=== PATIENT | male | born 1970 | race Caucasian/White ===

== ENCOUNTER 2019-02-23 17:25 | Emergency (ER) | payer SELFPAY ==
[2019-02-23] MEDS: ONDANSETRON (ODT) 4 MG TAB ODT (18:12)
[2019-02-23 18:19] LABS: ADD MAN DIFF? NO
[2019-02-23 18:22] LABS: ABNORMAL IP MESSAGE 1; BASOPHILS % 0.3 % (0.0-2.0); HEMATOCRIT 37.3 % (42.0-52.0); HEMOGLOBIN 12.7 g/dl (14.0-18.0); LYMPHOCYTES # 0.6 10^3/ul (0.8-2.9); LYMPHOCYTES % 6.5 % (15.0-51.0); MEAN CORPUSCULAR HEMOGLOBIN 30.1 pg (29.0-33.0); MEAN CORPUSCULAR VOLUME 88.4 fl (82.0-101.0); MEAN PLATELET VOLUME 12.6 fl (7.4-10.4); MONOCYTE # 0.4 10^3/ul (0.3-0.9); MONOCYTES % 4.7 % (0.0-11.0); NEUTROPHIL # 7.6 10^3/ul (1.6-7.5); NEUTROPHILS % 87.6 % (39.0-77.0); PLATELET COUNT 104 10^3/UL (140-415); POSITIVE DIFF @See below; RED BLOOD COUNT 4.22 10^6/ul (4.70-6.10); RED CELL DISTRIBUTION WIDTH 12.3 % (11.5-14.5)
[2019-02-23 18:22] LABS: WHITE BLOOD COUNT 8.6 10^3/ul (4.8-10.8)
[2019-02-23 18:45] LABS: ADD UMIC YES; UR ASCORBIC ACID 40 mg/dL (NEGATIVE); UR BILIRUBIN (Dip) 1+ mg/dL (NEGATIVE); UR BLOOD (Dip) NEGATIVE (NEGATIVE); UR CLARITY SLIGHTLY CLOUDY (CLEAR); UR COLOR AMBER (YELLOW); UR GLUCOSE (Dip) 1+ mg/dL (NEGATIVE); UR KETONES (Dip) 2+ mg/dL (NEGATIVE); UR LEUKOCYTE ESTERASE (Dip) NEGATIVE Leu/ul (NEGATIVE); UR MUCUS MANY /HPF (NONE SEEN); UR NITRITE (Dip) NEGATIVE (NEGATIVE); UR RBC 3 /HPF (0-5); UR SPECIFIC GRAVITY (Dip) 1.044 (1.003-1.030); UR TOTAL PROTEIN (Dip) 2+ mg/dl (NEGATIVE); UR UROBILINOGEN (Dip) 2+ mg/dL (NEGATIVE); UR WBC 1 /HPF (0-5)
[2019-02-23 18:48] LABS: ANION GAP 10 (5-13); BLOOD UREA NITROGEN 13 mg/dl (7-20); CALCIUM 8.3 mg/dl (8.4-10.2); CARBON DIOXIDE 24 mmol/L (21-31); CHLORIDE 99 mmol/L (97-110); CREATININE 0.64 mg/dl (0.61-1.24); Estimated GFR > 60 mL/min (>60); GLUCOSE 146 mg/dl (70-220); POTASSIUM 3.7 mmol/L (3.5-5.1); SODIUM 133 mmol/L (135-144)
[2019-02-23] MEDS: SOD CHLORIDE 0.9% 1,000 ML IV (19:20)
[2019-02-23] MEDS: HYDROCODONE/APAP (5/325) TAB PO (19:20)
[2019-02-23] MEDS: KETOROLAC 15 MG INJ IV (19:20)
[2019-02-23 19:42] LABS: BAND NEUTROPHILS % (M) 1 % (0-4); GIANT THROMBO% (M) 3 % (0-0); LYMPHOCYTES #M 0.4 10^3/ul (0.8-2.9); LYMPHOCYTES % (M) 5 % (15-51); MONOCYTE #M 0.3 10^3/ul (0.3-0.9); MONOCYTES % (M) 4 % (0-11); SEG NEUT #M 7.7 10^3/ul (1.6-7.5); SEGMENTED NEUTROPHILS (M) % 90 % (39-77); SMUDGE%M 9 % (0-0)
== END 2019-02-23 21:02 | disposition home or self-care (01) ==
LOC: FTE 21:02
DX: E86.0 Dehydration (principal); B34.9 Viral infection, unspecified
CPT/HCPCS: 71046; 80048; 81001; 85025; 96361; 96374; 99284-25

== ENCOUNTER 2019-02-27 14:10 | Emergency (ER) | payer MEDICAID ==
[2019-02-27] MEDS: ACETAMINOPHEN 500 MG TAB PO (15:53)
[2019-02-27] MEDS: SOD CHLORIDE 0.9% 1,000 ML IV (15:53)
[2019-02-27] MEDS: KETOROLAC 30 MG INJ IV (15:54)
[2019-02-27 15:57] LABS: ADD MAN DIFF? NO
[2019-02-27 15:59] LABS: WHITE BLOOD COUNT 16.1 10^3/ul (4.8-10.8)
[2019-02-27 15:59] LABS: BASOPHILS % 0.2 % (0.0-2.0); HEMATOCRIT 37.1 % (42.0-52.0); HEMOGLOBIN 12.4 g/dl (14.0-18.0); LYMPHOCYTES # 1.6 10^3/ul (0.8-2.9); LYMPHOCYTES % 10.2 % (15.0-51.0); MEAN CORPUSCULAR HEMOGLOBIN 29.7 pg (29.0-33.0); MEAN CORPUSCULAR HGB CONC 33.4 g/dl (32.0-37.0); MEAN PLATELET VOLUME 11.3 fl (7.4-10.4); MONOCYTE # 1.4 10^3/ul (0.3-0.9); MONOCYTES % 8.6 % (0.0-11.0); NEUTROPHIL # 12.5 10^3/ul (1.6-7.5); NEUTROPHILS % 77.5 % (39.0-77.0); PLATELET COUNT 272 10^3/UL (140-415); RED BLOOD COUNT 4.17 10^6/ul (4.70-6.10); RED CELL DISTRIBUTION WIDTH 12.7 % (11.5-14.5)
[2019-02-27 16:12] LABS: ADD UMIC NO; UR ASCORBIC ACID NEGATIVE (NEGATIVE); UR BILIRUBIN (Dip) NEGATIVE (NEGATIVE); UR BLOOD (Dip) NEGATIVE (NEGATIVE); UR CLARITY CLEAR (CLEAR); UR COLOR YELLOW (YELLOW); UR GLUCOSE (Dip) NEGATIVE (NEGATIVE); UR KETONES (Dip) NEGATIVE (NEGATIVE); UR LEUKOCYTE ESTERASE (Dip) NEGATIVE Leu/ul (NEGATIVE); UR NITRITE (Dip) NEGATIVE (NEGATIVE); UR SPECIFIC GRAVITY (Dip) 1.024 (1.003-1.030); UR TOTAL PROTEIN (Dip) NEGATIVE (NEGATIVE); UR UROBILINOGEN (Dip) 1+ mg/dL (NEGATIVE)
[2019-02-27 16:18] LABS: PROTIME 13.3 Sec (11.9-14.9)
[2019-02-27 16:19] LABS: PARTIAL THROMBOPLASTIN TIME 31.4 Sec (23.0-35.0)
[2019-02-27 16:22] LABS: ANION GAP 10 (5-13); BLOOD UREA NITROGEN 11 mg/dl (7-20); CALCIUM 8.6 mg/dl (8.4-10.2); CARBON DIOXIDE 26 mmol/L (21-31); CHLORIDE 98 mmol/L (97-110); Estimated GFR > 60 mL/min (>60); GLUCOSE 140 mg/dl (70-220); POTASSIUM 4.1 mmol/L (3.5-5.1); SODIUM 134 mmol/L (135-144)
[2019-02-27 17:04] LABS: ERYTHROCYTE SEDIMENTATION RATE 53 mm/Hr (0-15)
[2019-02-27] MEDS: morphine 4 MG/ML VIAL IV (17:11)
[2019-02-27] MEDS: PROCHLORPERAZINE 10 MG INJ IV (17:17)
== END 2019-02-27 18:08 | disposition home or self-care (01) ==
LOC: FTE 14:10
DX: R51 Headache (principal); R50.9 Fever, unspecified
CPT/HCPCS: 36415; 70450; 70486; 71046; 80048; 81003; 85025; 85610; 85651; 85730; 87400; 96361; 96374; 96375; 99285-25

== ENCOUNTER 2019-03-02 19:02 | Inpatient (IN) | payer MEDICAID ==
[2019-03-02 19:47] LABS: ABNORMAL IP MESSAGE 1; HEMATOCRIT 33.1 % (42.0-52.0); HEMOGLOBIN 11.1 g/dl (14.0-18.0); MEAN CORPUSCULAR HEMOGLOBIN 29.4 pg (29.0-33.0); MEAN CORPUSCULAR HGB CONC 33.5 g/dl (32.0-37.0); MEAN CORPUSCULAR VOLUME 87.8 fl (82.0-101.0); MEAN PLATELET VOLUME 11.7 fl (7.4-10.4); PLATELET COUNT 230 10^3/UL (140-415); POSITIVE DIFF @See below; RED BLOOD COUNT 3.77 10^6/ul (4.70-6.10); RED CELL DISTRIBUTION WIDTH 12.6 % (11.5-14.5)
[2019-03-02 19:47] LABS: WHITE BLOOD COUNT 28.5 10^3/ul (4.8-10.8)
[2019-03-02 19:53] LABS: ADD MAN DIFF? YES; PATH REVIEW? YES
[2019-03-02 20:01] LABS: AMMONIA 12 umol/l (9-30)
[2019-03-02] MEDS: VANCOMYCIN 1 GM (PMX) 250 ML IVPB (20:01)
[2019-03-02] MEDS: CEFEPIME 2GM/50 ML (PMX) 50 ML IVPB (20:01)
[2019-03-02 20:02] LABS: ALANINE AMINOTRANSFERASE 137 IU/L (13-69); ALBUMIN 3.4 g/dl (3.3-4.9); ALBUMIN/GLOBULIN RATIO 0.91; ALKALINE PHOSPHATASE 230 IU/L (42-121); ANION GAP 10 (5-13); ASPARTATE AMINO TRANSFERASE 125 IU/L (15-46); BILIRUBIN,INDIRECT 1.2 mg/dl (0-1.1); BILIRUBIN,TOTAL 1.6 mg/dl (0.2-1.3); BLOOD UREA NITROGEN 13 mg/dl (7-20); CALCIUM 8.4 mg/dl (8.4-10.2); CARBON DIOXIDE 24 mmol/L (21-31); CHLORIDE 97 mmol/L (97-110); CREATININE 0.45 mg/dl (0.61-1.24); Estimated GFR > 60 mL/min (>60); GLUCOSE 183 mg/dl (70-220); POTASSIUM 3.2 mmol/L (3.5-5.1); SODIUM 131 mmol/L (135-144); TOTAL PROTEIN 7.1 g/dl (6.1-8.1)
[2019-03-02 20:04] LABS: INR 1.07; PT RATIO 1.1
[2019-03-02 20:05] LABS: PARTIAL THROMBOPLASTIN TIME 28.1 Sec (23.0-35.0)
[2019-03-02] MEDS: SOD CHLORIDE 0.9% 1,000 ML IV ×3 (20:06→22:54)
[2019-03-02 20:14] LABS: TROPONIN-I < 0.012 ng/ml (0.000-0.120)
[2019-03-02] MEDS: LORAZEPAM 2 MG INJ IV ×3 (20:42→21:48)
[2019-03-02 20:53] LABS: PROCALCITONIN 0.71 ng/mL (0.00-0.10)
[2019-03-02 22:01] LABS: BAND NEUTROPHILS #M 1.9 10^3/ul (0.0-0.6); BAND NEUTROPHILS % (M) 7 % (0-4); LYMPHOCYTES #M 0.8 10^3/ul (0.8-2.9); LYMPHOCYTES % (M) 3 % (15-51); MONOCYTE #M 0.2 10^3/ul (0.3-0.9); MONOCYTES % (M) 1 % (0-11); SEG NEUT #M 25.9 10^3/ul (1.6-7.5); SEGMENTED NEUTROPHILS (M) % 89 % (39-77); SMUDGE%M 3 % (0-0)
[2019-03-02] MEDS ORDERED: LORAZEPAM 2 MG INJ IV (23:00)
[2019-03-02] MEDS ORDERED: ONDANSETRON 4 MG INJ IV ×2 (23:00)
[2019-03-02] MEDS ORDERED: ACETAMINOPHEN 325 MG TAB PO (23:00)
[2019-03-02 23:15] LABS: C-REACTIVE PROTEIN 22.8 mg/dl (0.0-0.9)
[2019-03-02] MEDS: PROPOFOL 200 MG INJ IV (23:18)
[2019-03-02] MEDS ORDERED: AMPICILLIN IVPB (23:30)
[2019-03-02] MEDS ORDERED: VANCOMYCIN IV PER PHARMACY XX (23:30)
[2019-03-02] MEDS ORDERED: SOD CHLORIDE 0.9% IVPB (23:30)
[2019-03-02 23:56] LABS: HAAIG REFLEX REFLEX FILED
[2019-03-03 00:16] LABS: MAGNESIUM 2.4 mg/dl (1.7-2.5)
[2019-03-03 00:47] LABS: HEPATITIS B SURFACE ANTIGEN NEGATIVE (NEGATIVE)
[2019-03-03 00:53] LABS: ETHANOL < 10.0 mg/dl (0-0)
[2019-03-03] MEDS: AMPICILLIN 1 GM/NS (PMX) 50 ML IVPB ×7 (00:54→23:54)
[2019-03-03 01:04] LABS: HIV 1&2 ANTIBODY NEGATIVE (NEGATIVE)
[2019-03-03 01:05] LABS: HEPATITIS B CORE ANTIBODY NEGATIVE (NEGATIVE); HEPATITIS C VIRAL ANTIBODY NEGATIVE (NEGATIVE)
[2019-03-03 01:11] LABS: ERYTHROCYTE SEDIMENTATION RATE 88 mm/Hr (0-15)
[2019-03-03 01:17] LABS: HEPATITIS B SURFACE ANTIBODY NEGATIVE (NEGATIVE)
[2019-03-03 01:34] LABS: GLUCOSE,CSF < 20 mg/dl (50-80)
[2019-03-03 01:51] LABS: CSF PMN% 93.5 %; CSF RBC 7000 /uL (0-0)
[2019-03-03 02:00] LABS: CSF PMN% 93.2 %; CSF RBC 11000 /uL (0-0)
[2019-03-03 02:19] LABS: TOTAL PROTEIN,CSF 1050 mg/dl (12-60)
[2019-03-03] MEDS: HALOPERIDOL 5 MG INJ IM (02:29)
[2019-03-03 02:56] LABS: AADO2 Arterial 42.6 mmHg (7.0-24.0); Arterial Base Excess -0.6 mmol/L (-3.0-3); Arterial Blood Gas Oxygen Sat 92.8 mmHG (95.0-98.0); Arterial COHb 0.3 % (0.0-3.0); Arterial Fraction of Oxyhgb 92.3 % (93.0-99.0); Arterial HCO3 22.6 mmol/L (22.0-26.0); Arterial MetHb 0.2 % (0.0-1.5); Arterial pCO2 32.6 mmhg (35-45); MODE ROOM AIR; Site LB
[2019-03-03] MEDS: ACETAMINOPHEN 650 MG SUPP PR (02:58)
[2019-03-03] MEDS: IPRATROPIUM (NEB) 0.5 MG/2.5 ML AMP NEB ×2 (03:18→08:34)
[2019-03-03] MEDS: ALBUTEROL 0.083% (NEB) 2.5 MG/3 ML AMP NEB ×3 (03:19→21:42)
[2019-03-03 03:23] LABS: CSF COLOR MILKY
[2019-03-03 03:23] LABS: CSF CLARITY TURBID; CSF MN% 6.8 %; CSF#TUBES REC'D 4
[2019-03-03 03:24] LABS: CSF#TUBE COUNT TUBE#1
[2019-03-03 03:26] LABS: CSF CLARITY TURBID; CSF COLOR MILKY; CSF MN% 6.5 %; CSF#TUBE COUNT TUBE#4; CSF#TUBES REC'D 4
[2019-03-03 03:39] LABS: CSF WBC 339751 /cmm (0-10)
[2019-03-03 03:40] LABS: CSF WBC 428757 /cmm (0-10)
[2019-03-03] MEDS: VANCOMYCIN 1 GM 250 ML IVPB ×3 (04:30→20:31)
[2019-03-03] MEDS ORDERED: DEXAMETHASONE 10 MG/ML 1 ML INJ IV (05:00)
[2019-03-03] MEDS: DEXAMETHASONE 10 MG/ML 1 ML INJ IV ×4 (05:04→22:20)
[2019-03-03] MEDS: PANTOPRAZOLE 40 MG INJ IV (05:04)
[2019-03-03] MEDS: ACETAMINOPHEN 1000MG/100ML IV 100 ML IVPB (05:13)
[2019-03-03 05:57] LABS: WHITE BLOOD COUNT 24.7 10^3/ul (4.8-10.8)
[2019-03-03 05:57] LABS: ABNORMAL IP MESSAGE 1; HEMATOCRIT 30.7 % (42.0-52.0); HEMOGLOBIN 10.6 g/dl (14.0-18.0); MEAN CORPUSCULAR HEMOGLOBIN 29.9 pg (29.0-33.0); MEAN CORPUSCULAR HGB CONC 34.5 g/dl (32.0-37.0); MEAN CORPUSCULAR VOLUME 86.5 fl (82.0-101.0); MEAN PLATELET VOLUME 11.9 fl (7.4-10.4); PLATELET COUNT 196 10^3/UL (140-415); POSITIVE DIFF @See below; RED BLOOD COUNT 3.55 10^6/ul (4.70-6.10); RED CELL DISTRIBUTION WIDTH 12.5 % (11.5-14.5)
[2019-03-03 06:08] LABS: ADD MAN DIFF? YES
[2019-03-03 06:24] LABS: ALANINE AMINOTRANSFERASE 105 IU/L (13-69); ALKALINE PHOSPHATASE 168 IU/L (42-121); ANION GAP 10 (5-13); ASPARTATE AMINO TRANSFERASE 48 IU/L (15-46); BILIRUBIN,TOTAL 1.1 mg/dl (0.2-1.3); BLOOD UREA NITROGEN 13 mg/dl (7-20); CALCIUM 8.1 mg/dl (8.4-10.2); CARBON DIOXIDE 23 mmol/L (21-31); CHLORIDE 102 mmol/L (97-110); CHOL/HDL RATIO 6.3 RATIO; CHOLESTEROL 121 mg/dl (100-200); CREATININE 0.57 mg/dl (0.61-1.24); Estimated GFR > 60 mL/min (>60); GLUCOSE 155 mg/dl (70-220); HDL CHOLESTEROL 19 mg/dl (27-67); LDL CHOLESTEROL,CALCULATED 72 mg/dl; MAGNESIUM 2.3 mg/dl (1.7-2.5); SODIUM 135 mmol/L (135-144); TRIGLYCERIDES 150 mg/dl (0-149)
[2019-03-03 06:49] LABS: THYROID STIMULATING HORMONE 0.488 MIU/L (0.465-4.680)
[2019-03-03 07:51] LABS: AADO2 Arterial 45.6 mmHg (7.0-24.0); Allen Test ACCEPTAB; Arterial Base Excess 0.6 mmol/L (-3.0-3); Arterial COHb 0.3 % (0.0-3.0); Arterial Fraction of Oxyhgb 98.3 % (93.0-99.0); Arterial HCO3 22.4 mmol/L (22.0-26.0); Arterial MetHb 0.4 % (0.0-1.5); Arterial pCO2 27.3 mmhg (35-45); MODE NASAL CANNULA; Site Right Radial
[2019-03-03 08:40] LABS: ERYTHROCYTE SEDIMENTATION RATE 61 mm/Hr (0-15)
[2019-03-03 08:48] LABS: HEMOGLOBIN A1C 5.8 % (0-5.9)
[2019-03-03] MEDS: LIDOCAINE 1% (MPF) 5 ML VIAL SC (09:00)
[2019-03-03 09:16] LABS: ANISOCYTOSIS 1+ (0-0); BAND NEUTROPHILS #M 3.4 10^3/ul (0.0-0.6); BAND NEUTROPHILS % (M) 14 % (0-4); BURR CELLS 2+ (0-0); GIANT THROMBO% (M) 6 % (0-0); MONOCYTE #M 0.2 10^3/ul (0.3-0.9); MONOCYTES % (M) 1 % (0-11); PLATELET ESTIMATE NORMAL; POIKILOCYTOSIS 3+ (0-0); POLYCHROMASIA 3+ (0-0); SEG NEUT #M 21.8 10^3/ul (1.6-7.5); SEGMENTED NEUTROPHILS (M) % 85 % (39-77); SMUDGE%M 3 % (0-0)
[2019-03-03] MEDS: CEFTRIAXONE 2 GM/50 ML (PMX) 50 ML IVPB (09:26)
[2019-03-03] MEDS: POTASSIUM CHLORIDE 100 ML IVPB ×3 (09:27→15:08)
[2019-03-03] MEDS: CEFEPIME 2GM/50 ML (PMX) 50 ML IVPB ×2 (14:27→21:35)
[2019-03-03 20:20] LABS: RAPID PLASMA REAGIN NONREACTIVE (NR)
[2019-03-03] MEDS ORDERED: ETOMIDATE 20 MG INJ (21:00)
[2019-03-03] MEDS ORDERED: ROCURONIUM 50 MG INJ (21:00)
[2019-03-03 22:51] LABS: AADO2 Arterial 316.7 mmHg (7.0-24.0); Allen Test ACCEPTAB; Arterial Base Excess -1.6 mmol/L (-3.0-3); Arterial Blood Gas Oxygen Sat 96.2 mmHG (95.0-98.0); Arterial COHb 0.3 % (0.0-3.0); Arterial Fraction of Oxyhgb 95.6 % (93.0-99.0); Arterial HCO3 21.3 mmol/L (22.0-26.0); Arterial MetHb 0.3 % (0.0-1.5); Arterial pCO2 30.8 mmhg (35-45); MODE MASK - SIMPLE; Site Right Radial
[2019-03-03] MEDS ORDERED: PROPOFOL 100 ML (23:35)
[2019-03-03] MEDS: PROPOFOL 100 ML IV (23:54)
[2019-03-04 01:20] LABS: Arterial Blood Gas Oxygen Sat 98.9 mmHG (95.0-98.0); Arterial COHb 0.3 % (0.0-3.0); Arterial Fraction of Oxyhgb 98.2 % (93.0-99.0); Arterial HCO3 23.6 mmol/L (22.0-26.0); Arterial MetHb 0.4 % (0.0-1.5); Arterial pCO2 43.4 mmhg (35-45); MODE VENT - AC; Site Right Brachial
[2019-03-04] MEDS: PROPOFOL 100 ML IV ×3 (03:22→13:17)
[2019-03-04] MEDS: AMPICILLIN 1 GM/NS (PMX) 50 ML IVPB (03:23)
[2019-03-04 03:31] LABS: ADD MAN DIFF? NO
[2019-03-04 03:33] LABS: WHITE BLOOD COUNT 14.4 10^3/ul (4.8-10.8)
[2019-03-04 03:33] LABS: ABNORMAL IP MESSAGE 1; BASOPHILS % 0.1 % (0.0-2.0); HEMATOCRIT 34.1 % (42.0-52.0); HEMOGLOBIN 11.3 g/dl (14.0-18.0); LYMPHOCYTES # 0.4 10^3/ul (0.8-2.9); LYMPHOCYTES % 2.8 % (15.0-51.0); MEAN CORPUSCULAR HEMOGLOBIN 29.7 pg (29.0-33.0); MEAN CORPUSCULAR HGB CONC 33.1 g/dl (32.0-37.0); MEAN CORPUSCULAR VOLUME 89.5 fl (82.0-101.0); MEAN PLATELET VOLUME 12.7 fl (7.4-10.4); MONOCYTE # 0.5 10^3/ul (0.3-0.9); MONOCYTES % 3.5 % (0.0-11.0); NEUTROPHIL # 13.4 10^3/ul (1.6-7.5); NEUTROPHILS % 92.5 % (39.0-77.0); PLATELET COUNT 131 10^3/UL (140-415); POSITIVE DIFF @See below; RED BLOOD COUNT 3.81 10^6/ul (4.70-6.10); RED CELL DISTRIBUTION WIDTH 13.2 % (11.5-14.5)
[2019-03-04 03:51] LABS: ALANINE AMINOTRANSFERASE 98 IU/L (13-69); ALBUMIN/GLOBULIN RATIO 0.88; ALKALINE PHOSPHATASE 166 IU/L (42-121); ANION GAP 8 (5-13); ASPARTATE AMINO TRANSFERASE 44 IU/L (15-46); BILIRUBIN,INDIRECT 0.6 mg/dl (0-1.1); BILIRUBIN,TOTAL 0.6 mg/dl (0.2-1.3); BLOOD UREA NITROGEN 14 mg/dl (7-20); CALCIUM 7.9 mg/dl (8.4-10.2); CARBON DIOXIDE 25 mmol/L (21-31); CHLORIDE 107 mmol/L (97-110); CREATININE 0.63 mg/dl (0.61-1.24); Estimated GFR > 60 mL/min (>60); GLUCOSE 210 mg/dl (70-220); SODIUM 140 mmol/L (135-144); TOTAL PROTEIN 6.4 g/dl (6.1-8.1)
[2019-03-04 04:01] LABS: VANCOMYCIN,TROUGH < 5.0 ug/ml (10.0-20.0)
[2019-03-04] MEDS: DEXAMETHASONE 10 MG/ML 1 ML INJ IV ×4 (04:26→23:10)
[2019-03-04] MEDS: VANCOMYCIN 1 GM 250 ML IVPB (04:26)
[2019-03-04] MEDS: CEFEPIME 2GM/50 ML (PMX) 50 ML IVPB ×3 (05:25→21:32)
[2019-03-04] MEDS: PANTOPRAZOLE 40 MG INJ IV (05:25)
[2019-03-04 06:15] LABS: ADD UMIC YES; UR ASCORBIC ACID NEGATIVE (NEGATIVE); UR BACTERIA FEW /HPF (NONE SEEN); UR BILIRUBIN (Dip) NEGATIVE (NEGATIVE); UR BLOOD (Dip) 2+ mg/dL (NEGATIVE); UR CLARITY SLIGHTLY CLOUDY (CLEAR); UR COLOR YELLOW (YELLOW); UR GLUCOSE (Dip) 1+ mg/dL (NEGATIVE); UR KETONES (Dip) NEGATIVE (NEGATIVE); UR LEUKOCYTE ESTERASE (Dip) NEGATIVE Leu/ul (NEGATIVE); UR NITRITE (Dip) NEGATIVE (NEGATIVE); UR RBC 29 /HPF (0-5); UR SPECIFIC GRAVITY (Dip) 1.021 (1.003-1.030); UR TOTAL PROTEIN (Dip) 1+ mg/dl (NEGATIVE); UR UROBILINOGEN (Dip) NEGATIVE (NEGATIVE); UR WBC 5 /HPF (0-5)
[2019-03-04 06:24] LABS: AMPHETAMINE/METHAMPHETAMINE Negative (NEGATIVE); BARBITURATES Negative (NEGATIVE); BENZODIAZEPINES Negative (NEGATIVE); CANNABINOIDS Negative (NEGATIVE); COCAINE Negative (NEGATIVE); OPIATES Negative (NEGATIVE)
[2019-03-04] MEDS: ACETAMINOPHEN 650 MG SUPP PR (09:23)
[2019-03-04] MEDS ORDERED: VANCOMYCIN HCL 1.5 GM in SOD CHLORIDE 0.9% 250 ML IVPB (12:00)
[2019-03-04] MEDS ORDERED: ACETAMINOPHEN 1000MG/100ML IV 100 ML IVPB (13:00)
[2019-03-04] MEDS: ACETAMINOPHEN 1000MG/100ML IV 100 ML IVPB (13:16)
[2019-03-04] MEDS: FAMOTIDINE 20 MG INJ IV (21:32)
[2019-03-04] MEDS ORDERED: DEXTROSE 50% 50 ML SYRINGE IV ×2 (23:45)
[2019-03-04] MEDS ORDERED: GLUCAGON 1 MG INJ IM (23:45)
[2019-03-04] MEDS ORDERED: GLUCOSE GEL 15 GRAM TUBE BUCCAL (23:45)
[2019-03-04] MEDS ORDERED: GLUCOSE GEL 15 GRAM TUBE PO ×2 (23:45)
[2019-03-05] MEDS: INSULIN ASPART [NOVOLOG] 3 ML PEN SC ×6 (01:41→21:01)
[2019-03-05 04:56] LABS: ADD MAN DIFF? NO
[2019-03-05 05:03] LABS: WHITE BLOOD COUNT 8.9 10^3/ul (4.8-10.8)
[2019-03-05 05:03] LABS: ABNORMAL IP MESSAGE 1; BASOPHILS % 0.1 % (0.0-2.0); HEMOGLOBIN 11.2 g/dl (14.0-18.0); LYMPHOCYTES # 0.4 10^3/ul (0.8-2.9); LYMPHOCYTES % 4.4 % (15.0-51.0); MEAN CORPUSCULAR HEMOGLOBIN 29.9 pg (29.0-33.0); MEAN CORPUSCULAR HGB CONC 32.9 g/dl (32.0-37.0); MEAN CORPUSCULAR VOLUME 90.9 fl (82.0-101.0); MEAN PLATELET VOLUME 12.3 fl (7.4-10.4); MONOCYTE # 0.7 10^3/ul (0.3-0.9); MONOCYTES % 7.8 % (0.0-11.0); NEUTROPHIL # 7.7 10^3/ul (1.6-7.5); NEUTROPHILS % 86.9 % (39.0-77.0); PLATELET COUNT 119 10^3/UL (140-415); POSITIVE DIFF @See below; RED BLOOD COUNT 3.74 10^6/ul (4.70-6.10); RED CELL DISTRIBUTION WIDTH 13.3 % (11.5-14.5)
[2019-03-05] MEDS: CEFEPIME 2GM/50 ML (PMX) 50 ML IVPB (05:09)
[2019-03-05] MEDS: DEXAMETHASONE 10 MG/ML 1 ML INJ IV ×4 (05:09→22:17)
[2019-03-05 05:24] LABS: ALANINE AMINOTRANSFERASE 83 IU/L (13-69); ALBUMIN/GLOBULIN RATIO 0.96; ALKALINE PHOSPHATASE 134 IU/L (42-121); ANION GAP 5 (5-13); ASPARTATE AMINO TRANSFERASE 32 IU/L (15-46); BILIRUBIN,INDIRECT 0.9 mg/dl (0-1.1); BILIRUBIN,TOTAL 0.9 mg/dl (0.2-1.3); BLOOD UREA NITROGEN 22 mg/dl (7-20); CARBON DIOXIDE 30 mmol/L (21-31); CHLORIDE 107 mmol/L (97-110); CREATININE 0.68 mg/dl (0.61-1.24); Estimated GFR > 60 mL/min (>60); GLUCOSE 199 mg/dl (70-220); POTASSIUM 3.9 mmol/L (3.5-5.1); SODIUM 142 mmol/L (135-144); TOTAL PROTEIN 6.1 g/dl (6.1-8.1)
[2019-03-05 05:25] LABS: PHOSPHORUS 3.3 mg/dl (2.5-4.9)
[2019-03-05 08:40] LABS: AADO2 Arterial 145.9 mmHg (7.0-24.0); Allen Test ACCEPTAB; Arterial Base Excess 3.9 mmol/L (-3.0-3); Arterial Blood Gas Oxygen Sat 97.9 mmHG (95.0-98.0); Arterial COHb 0.1 % (0.0-3.0); Arterial Fraction of Oxyhgb 97.5 % (93.0-99.0); Arterial HCO3 26.6 mmol/L (22.0-26.0); Arterial MetHb 0.3 % (0.0-1.5); Arterial pCO2 33.7 mmhg (35-45); MODE VENT - AC; Site Right Radial
[2019-03-05] MEDS: FAMOTIDINE 20 MG INJ IV ×2 (08:41→20:54)
[2019-03-05] MEDS: CEFTRIAXONE 2 GM/50 ML (PMX) 50 ML IVPB ×2 (08:41→20:54)
[2019-03-05 16:51] LABS: WEST NILE VIRUS ANTIBODY (IGG) 2.71 index; WEST NILE VIRUS ANTIBODY (IGM) <0.90 index
[2019-03-05 20:01] LABS: CRYPTOCOCCAL ANTIGEN - SOURCE SERUM; VDRL, CSF NON-REACTIVE
[2019-03-06] MEDS: INSULIN ASPART [NOVOLOG] 3 ML PEN SC ×6 (01:20→20:43)
[2019-03-06] MEDS: DEXAMETHASONE 10 MG/ML 1 ML INJ IV ×4 (05:15→22:50)
[2019-03-06 05:25] LABS: ADD MAN DIFF? NO
[2019-03-06 05:42] LABS: ABNORMAL IP MESSAGE 1; BASOPHILS % 0.1 % (0.0-2.0); HEMATOCRIT 35.6 % (42.0-52.0); HEMOGLOBIN 11.6 g/dl (14.0-18.0); LYMPHOCYTES # 0.4 10^3/ul (0.8-2.9); LYMPHOCYTES % 5.2 % (15.0-51.0); MEAN CORPUSCULAR HEMOGLOBIN 29.7 pg (29.0-33.0); MEAN CORPUSCULAR HGB CONC 32.6 g/dl (32.0-37.0); MEAN PLATELET VOLUME 12.3 fl (7.4-10.4); MONOCYTE # 0.9 10^3/ul (0.3-0.9); MONOCYTES % 10.3 % (0.0-11.0); NEUTROPHILS % 83.7 % (39.0-77.0); PLATELET COUNT 139 10^3/UL (140-415); POSITIVE DIFF @See below; RED BLOOD COUNT 3.91 10^6/ul (4.70-6.10); RED CELL DISTRIBUTION WIDTH 13.3 % (11.5-14.5)
[2019-03-06 05:42] LABS: WHITE BLOOD COUNT 8.4 10^3/ul (4.8-10.8)
[2019-03-06 05:46] LABS: HERPES SIMPLEX 1 DNA NOT DETECTED; HERPES SIMPLEX 2 DNA NOT DETECTED; HERPES SIMPLEX PCR SOURCE SERUM
[2019-03-06 05:58] LABS: ALANINE AMINOTRANSFERASE 100 IU/L (13-69); ALBUMIN/GLOBULIN RATIO 0.93; ALKALINE PHOSPHATASE 135 IU/L (42-121); ANION GAP 9 (5-13); ASPARTATE AMINO TRANSFERASE 45 IU/L (15-46); BILIRUBIN,INDIRECT 0.8 mg/dl (0-1.1); BILIRUBIN,TOTAL 0.8 mg/dl (0.2-1.3); BLOOD UREA NITROGEN 27 mg/dl (7-20); CARBON DIOXIDE 26 mmol/L (21-31); CHLORIDE 110 mmol/L (97-110); CREATININE 0.67 mg/dl (0.61-1.24); Estimated GFR > 60 mL/min (>60); GLUCOSE 215 mg/dl (70-220); POTASSIUM 4.3 mmol/L (3.5-5.1); SODIUM 145 mmol/L (135-144); TOTAL PROTEIN 6.2 g/dl (6.1-8.1)
[2019-03-06] MEDS: CEFTRIAXONE 2 GM/50 ML (PMX) 50 ML IVPB ×2 (08:35→20:39)
[2019-03-06] MEDS: FAMOTIDINE 20 MG INJ IV ×2 (08:35→20:39)
[2019-03-06] MEDS: PROPOFOL 100 ML IV ×2 (12:00)
[2019-03-07] MEDS: INSULIN ASPART [NOVOLOG] 3 ML PEN SC ×6 (01:20→20:18)
[2019-03-07] MEDS: DEXAMETHASONE 10 MG/ML 1 ML INJ IV (05:38)
[2019-03-07 05:58] LABS: ADD MAN DIFF? NO
[2019-03-07 06:06] LABS: WHITE BLOOD COUNT 7.7 10^3/ul (4.8-10.8)
[2019-03-07 06:06] LABS: ABNORMAL IP MESSAGE 1; BASOPHILS % 0.1 % (0.0-2.0); HEMATOCRIT 35.9 % (42.0-52.0); HEMOGLOBIN 11.6 g/dl (14.0-18.0); LYMPHOCYTES # 0.4 10^3/ul (0.8-2.9); LYMPHOCYTES % 5.6 % (15.0-51.0); MEAN CORPUSCULAR HEMOGLOBIN 29.7 pg (29.0-33.0); MEAN CORPUSCULAR HGB CONC 32.3 g/dl (32.0-37.0); MEAN CORPUSCULAR VOLUME 91.8 fl (82.0-101.0); MEAN PLATELET VOLUME 12.5 fl (7.4-10.4); MONOCYTE # 0.9 10^3/ul (0.3-0.9); MONOCYTES % 11.1 % (0.0-11.0); NEUTROPHIL # 6.3 10^3/ul (1.6-7.5); NEUTROPHILS % 81.9 % (39.0-77.0); PLATELET COUNT 152 10^3/UL (140-415); POSITIVE DIFF @See below; RED BLOOD COUNT 3.91 10^6/ul (4.70-6.10); RED CELL DISTRIBUTION WIDTH 12.8 % (11.5-14.5)
[2019-03-07 06:53] LABS: ANION GAP 7 (5-13); BLOOD UREA NITROGEN 26 mg/dl (7-20); CALCIUM 8.2 mg/dl (8.4-10.2); CARBON DIOXIDE 27 mmol/L (21-31); CHLORIDE 107 mmol/L (97-110); CREATININE 0.63 mg/dl (0.61-1.24); Estimated GFR > 60 mL/min (>60); GLUCOSE 211 mg/dl (70-220); POTASSIUM 4.6 mmol/L (3.5-5.1); SODIUM 141 mmol/L (135-144)
[2019-03-07 08:52] LABS: PLATELET COUNT 151 10^3/UL (140-415)
[2019-03-07] MEDS: CEFTRIAXONE 2 GM/50 ML (PMX) 50 ML IVPB ×2 (08:54→21:25)
[2019-03-07] MEDS: FAMOTIDINE 20 MG INJ IV ×2 (08:55→21:25)
[2019-03-07 09:05] LABS: INR 1.07; PARTIAL THROMBOPLASTIN TIME 25.5 Sec (23.0-35.0); PT RATIO 1.1
[2019-03-07] MEDS: ACETAMINOPHEN 1000MG/100ML IV 100 ML IVPB (09:05)
[2019-03-07 09:09] LABS: THROMBIN TIME 15.8 SEC (13.8-19.1)
[2019-03-07 09:38] LABS: D-DIMER 9291.43 ng/ml (<460)
[2019-03-07] MEDS: PROPOFOL 100 ML IV ×2 (12:00)
[2019-03-07] MEDS: ASPIRIN (EC) 325 MG TAB PO (14:00)
[2019-03-07] MEDS: IOHEXOL 100 ML (16:22)
[2019-03-07] MEDS: SOD CHLORIDE 0.9% 100 ML (16:22)
[2019-03-07] MEDS ORDERED: ASPIRIN 81 MG TAB PO (17:03)
[2019-03-07] MEDS: ASPIRIN 325 MG TAB PO (17:43)
[2019-03-07] MEDS: INSULIN GLARGINE [LANTus] (100 UNITS/ML) SYG SC (20:18)
[2019-03-08] MEDS: INSULIN ASPART [NOVOLOG] 3 ML PEN SC ×6 (01:00→21:00)
[2019-03-08] MEDS: ACCU-CHEK XX (01:32)
[2019-03-08] MEDS: ACETAMINOPHEN 650MG/20.3ML CUP PO ×2 (01:36→14:39)
[2019-03-08 05:24] LABS: ADD MAN DIFF? NO
[2019-03-08 05:28] LABS: WHITE BLOOD COUNT 10.2 10^3/ul (4.8-10.8)
[2019-03-08 05:28] LABS: BASOPHILS % 0.2 % (0.0-2.0); EOSINOPHILS % 0.2 % (0.0-7.0); HEMOGLOBIN 11.4 g/dl (14.0-18.0); LYMPHOCYTES # 1.3 10^3/ul (0.8-2.9); LYMPHOCYTES % 12.3 % (15.0-51.0); MEAN CORPUSCULAR HEMOGLOBIN 29.9 pg (29.0-33.0); MEAN CORPUSCULAR HGB CONC 32.6 g/dl (32.0-37.0); MEAN CORPUSCULAR VOLUME 91.9 fl (82.0-101.0); MEAN PLATELET VOLUME 12.3 fl (7.4-10.4); MONOCYTE # 0.7 10^3/ul (0.3-0.9); MONOCYTES % 6.5 % (0.0-11.0); NEUTROPHIL # 8.2 10^3/ul (1.6-7.5); NEUTROPHILS % 79.7 % (39.0-77.0); PLATELET COUNT 179 10^3/UL (140-415); RED BLOOD COUNT 3.81 10^6/ul (4.70-6.10); RED CELL DISTRIBUTION WIDTH 12.5 % (11.5-14.5)
[2019-03-08 06:06] LABS: PHOSPHORUS 3.6 mg/dl (2.5-4.9)
[2019-03-08 06:06] LABS: MAGNESIUM 2.6 mg/dl (1.7-2.5)
[2019-03-08 06:08] LABS: ANION GAP 5 (5-13); BLOOD UREA NITROGEN 27 mg/dl (7-20); CALCIUM 7.9 mg/dl (8.4-10.2); CARBON DIOXIDE 30 mmol/L (21-31); CHLORIDE 105 mmol/L (97-110); CREATININE 0.69 mg/dl (0.61-1.24); Estimated GFR > 60 mL/min (>60); GLUCOSE 124 mg/dl (70-220); POTASSIUM 4.6 mmol/L (3.5-5.1); SODIUM 140 mmol/L (135-144)
[2019-03-08] MEDS: CEFTRIAXONE 2 GM/50 ML (PMX) 50 ML IVPB ×2 (08:43→21:02)
[2019-03-08] MEDS: FAMOTIDINE 20 MG INJ IV ×2 (08:43→21:00)
[2019-03-08] MEDS: predniSONE 20 MG TAB PO (08:43)
[2019-03-08] MEDS: ASPIRIN 81 MG TAB PO (08:44)
[2019-03-08] MEDS ORDERED: ASPIRIN (EC) 81 MG TAB PO (09:00)
[2019-03-08] MEDS: PROPOFOL 100 ML IV ×2 (12:00)
[2019-03-08] MEDS ORDERED: LIDOCAINE 1% (MDV) 20 ML INJ (12:30)
[2019-03-08] MEDS: LIDOCAINE 1% (MDV) 20 ML INJ SC (13:02)
[2019-03-08 15:26] LABS: CSF PMN% 60.9 %; CSF RBC 257000 /uL (0-0)
[2019-03-08 15:40] LABS: CSF COLOR RED
[2019-03-08 15:40] LABS: CSF CLARITY BLOODY; CSF MN% 39.1 %; CSF VOLUME 0.5 ml; CSF WBC 8125 /cmm (0-10); CSF#TUBES REC'D 1
[2019-03-08 15:45] LABS: CSF#TUBE COUNT TUBE#1
[2019-03-08] MEDS: INSULIN GLARGINE [LANTus] (100 UNITS/ML) SYG SC (21:02)
[2019-03-09] MEDS: INSULIN ASPART [NOVOLOG] 3 ML PEN SC ×6 (01:00→20:49)
[2019-03-09] MEDS: ACCU-CHEK XX (01:35)
[2019-03-09 07:23] LABS: ADD UMIC YES; UR ASCORBIC ACID 20 mg/dL (NEGATIVE); UR BILIRUBIN (Dip) NEGATIVE (NEGATIVE); UR BLOOD (Dip) 3+ mg/dL (NEGATIVE); UR CLARITY SLIGHTLY CLOUDY (CLEAR); UR COLOR AMBER (YELLOW); UR GLUCOSE (Dip) NEGATIVE (NEGATIVE); UR KETONES (Dip) NEGATIVE (NEGATIVE); UR LEUKOCYTE ESTERASE (Dip) NEGATIVE Leu/ul (NEGATIVE); UR MUCUS FEW /HPF (NONE SEEN); UR NITRITE (Dip) NEGATIVE (NEGATIVE); UR RBC 114 /HPF (0-5); UR SPECIFIC GRAVITY (Dip) 1.036 (1.003-1.030); UR TOTAL PROTEIN (Dip) 1+ mg/dl (NEGATIVE); UR UROBILINOGEN (Dip) 1+ mg/dL (NEGATIVE); UR WBC 5 /HPF (0-5)
[2019-03-09] MEDS: predniSONE 20 MG TAB PO (08:26)
[2019-03-09] MEDS: ASPIRIN 81 MG TAB PO (08:26)
[2019-03-09] MEDS: FAMOTIDINE 20 MG INJ IV ×2 (08:26→20:40)
[2019-03-09] MEDS: CEFTRIAXONE 2 GM/50 ML (PMX) 50 ML IVPB ×2 (08:26→20:40)
[2019-03-09] MEDS: PROPOFOL 100 ML IV ×2 (11:15)
[2019-03-09 12:07] LABS: PROCALCITONIN 0.11 ng/mL (0.00-0.10)
[2019-03-09] MEDS: DOCUSATE SODIUM 100 MG CAP PO (16:46)
[2019-03-09 19:12] LABS: HEPARIN INDUCED PLATELET AB NEGATIVE (NEGATIVE)
[2019-03-09 19:57] LABS: ANTI-THROMBIN III 33 mg/dL (19-30)
[2019-03-09] MEDS: INSULIN GLARGINE [LANTus] (100 UNITS/ML) SYG SC (20:39)
[2019-03-09] MEDS: ACETAMINOPHEN 650MG/20.3ML CUP NGT (21:00)
[2019-03-10] MEDS: INSULIN ASPART [NOVOLOG] 3 ML PEN SC ×5 (00:38→23:27)
[2019-03-10] MEDS: ACCU-CHEK XX (01:40)
[2019-03-10 05:09] LABS: ADD MAN DIFF? NO
[2019-03-10 05:13] LABS: BASOPHILS % 0.1 % (0.0-2.0); EOSINOPHILS # 0.1 10^3/ul (0.0-0.5); HEMATOCRIT 33.6 % (42.0-52.0); HEMOGLOBIN 10.8 g/dl (14.0-18.0); LYMPHOCYTES # 1.2 10^3/ul (0.8-2.9); LYMPHOCYTES % 10.6 % (15.0-51.0); MEAN CORPUSCULAR HEMOGLOBIN 29.8 pg (29.0-33.0); MEAN CORPUSCULAR HGB CONC 32.1 g/dl (32.0-37.0); MEAN CORPUSCULAR VOLUME 92.6 fl (82.0-101.0); MEAN PLATELET VOLUME 12.3 fl (7.4-10.4); MONOCYTE # 0.6 10^3/ul (0.3-0.9); MONOCYTES % 5.1 % (0.0-11.0); NEUTROPHIL # 9.4 10^3/ul (1.6-7.5); NEUTROPHILS % 81.7 % (39.0-77.0); PLATELET COUNT 251 10^3/UL (140-415); RED BLOOD COUNT 3.63 10^6/ul (4.70-6.10); RED CELL DISTRIBUTION WIDTH 12.3 % (11.5-14.5)
[2019-03-10 05:13] LABS: WHITE BLOOD COUNT 11.5 10^3/ul (4.8-10.8)
[2019-03-10 05:35] LABS: MAGNESIUM 2.6 mg/dl (1.7-2.5)
[2019-03-10 05:35] LABS: PHOSPHORUS 3.2 mg/dl (2.5-4.9)
[2019-03-10 05:43] LABS: ALANINE AMINOTRANSFERASE 49 IU/L (13-69); ALBUMIN/GLOBULIN RATIO 0.93; ALKALINE PHOSPHATASE 118 IU/L (42-121); ANION GAP 5 (5-13); ASPARTATE AMINO TRANSFERASE 19 IU/L (15-46); BILIRUBIN,INDIRECT 0.5 mg/dl (0-1.1); BILIRUBIN,TOTAL 0.5 mg/dl (0.2-1.3); BLOOD UREA NITROGEN 27 mg/dl (7-20); CALCIUM 7.9 mg/dl (8.4-10.2); CARBON DIOXIDE 31 mmol/L (21-31); CHLORIDE 102 mmol/L (97-110); CREATININE 0.72 mg/dl (0.61-1.24); Estimated GFR > 60 mL/min (>60); GLUCOSE 140 mg/dl (70-220); POTASSIUM 4.2 mmol/L (3.5-5.1); SODIUM 138 mmol/L (135-144); TOTAL PROTEIN 6.2 g/dl (6.1-8.1)
[2019-03-10] MEDS: CEFTRIAXONE 2 GM/50 ML (PMX) 50 ML IVPB ×2 (08:31→20:48)
[2019-03-10] MEDS: ASPIRIN 81 MG TAB PO (08:31)
[2019-03-10] MEDS: FAMOTIDINE 20 MG INJ IV ×2 (08:31→20:49)
[2019-03-10] MEDS: ACETAMINOPHEN 650MG/20.3ML CUP NGT (08:47)
[2019-03-10] MEDS: ACYCLOVIR 400 MG TAB NGT ×3 (10:17→20:49)
[2019-03-10] MEDS: LIDOCAINE 1% (MPF) 5 ML VIAL (11:31)
[2019-03-10] MEDS: PROPOFOL 100 ML IV ×3 (12:00→23:27)
[2019-03-10] MEDS: ACETAMINOPHEN 1000MG/100ML IV 100 ML IVPB ×2 (15:11→20:48)
[2019-03-10] MEDS: INSULIN GLARGINE [LANTus] (100 UNITS/ML) SYG SC (20:56)
[2019-03-11] MEDS: ACETAMINOPHEN 1000MG/100ML IV 100 ML IVPB ×2 (01:17→08:32)
[2019-03-11] MEDS: INSULIN ASPART [NOVOLOG] 3 ML PEN SC ×3 (05:33→17:44)
[2019-03-11 07:31] LABS: ADD MAN DIFF? NO
[2019-03-11 08:28] LABS: BASOPHILS % 0.2 % (0.0-2.0); EOSINOPHILS # 0.1 10^3/ul (0.0-0.5); EOSINOPHILS % 0.6 % (0.0-7.0); HEMATOCRIT 31.6 % (42.0-52.0); HEMOGLOBIN 10.2 g/dl (14.0-18.0); LYMPHOCYTES # 0.9 10^3/ul (0.8-2.9); LYMPHOCYTES % 8.4 % (15.0-51.0); MEAN CORPUSCULAR HEMOGLOBIN 29.7 pg (29.0-33.0); MEAN CORPUSCULAR HGB CONC 32.3 g/dl (32.0-37.0); MEAN CORPUSCULAR VOLUME 92.1 fl (82.0-101.0); MEAN PLATELET VOLUME 11.8 fl (7.4-10.4); MONOCYTE # 0.6 10^3/ul (0.3-0.9); MONOCYTES % 5.8 % (0.0-11.0); NEUTROPHIL # 9.3 10^3/ul (1.6-7.5); NEUTROPHILS % 83.6 % (39.0-77.0); PLATELET COUNT 282 10^3/UL (140-415); RED BLOOD COUNT 3.43 10^6/ul (4.70-6.10); RED CELL DISTRIBUTION WIDTH 12.4 % (11.5-14.5)
[2019-03-11 08:28] LABS: WHITE BLOOD COUNT 11.1 10^3/ul (4.8-10.8)
[2019-03-11] MEDS: FAMOTIDINE 20 MG INJ IV ×2 (08:33→20:54)
[2019-03-11] MEDS: ACYCLOVIR 400 MG TAB NGT ×3 (08:33→20:54)
[2019-03-11] MEDS: ASPIRIN 81 MG TAB PO (08:33)
[2019-03-11] MEDS: CEFTRIAXONE 2 GM/50 ML (PMX) 50 ML IVPB ×2 (08:36→20:53)
[2019-03-11 08:47] LABS: PHOSPHORUS 3.8 mg/dl (2.5-4.9)
[2019-03-11 08:47] LABS: ANION GAP 6 (5-13); BLOOD UREA NITROGEN 27 mg/dl (7-20); CALCIUM 7.8 mg/dl (8.4-10.2); CARBON DIOXIDE 30 mmol/L (21-31); CHLORIDE 100 mmol/L (97-110); CREATININE 0.83 mg/dl (0.61-1.24); Estimated GFR > 60 mL/min (>60); GLUCOSE 138 mg/dl (70-220); MAGNESIUM 2.7 mg/dl (1.7-2.5); POTASSIUM 4.2 mmol/L (3.5-5.1); SODIUM 136 mmol/L (135-144)
[2019-03-11] MEDS: PROPOFOL 100 ML IV (09:31)
[2019-03-11] MEDS: INSULIN GLARGINE [LANTus] (100 UNITS/ML) SYG SC (21:23)
[2019-03-12] MEDS: METOCLOPRAMIDE 10 MG INJ IV ×2 (00:10→05:32)
[2019-03-12] MEDS: NACL 3% FOR INHALATION 15 ML NEBU NEB (00:10)
[2019-03-12] MEDS: INSULIN ASPART [NOVOLOG] 3 ML PEN SC ×4 (05:31→18:00)
[2019-03-12 05:33] LABS: ADD MAN DIFF? NO
[2019-03-12 05:49] LABS: BASOPHILS % 0.2 % (0.0-2.0); EOSINOPHILS # 0.1 10^3/ul (0.0-0.5); EOSINOPHILS % 1.1 % (0.0-7.0); HEMATOCRIT 34.8 % (42.0-52.0); HEMOGLOBIN 11.2 g/dl (14.0-18.0); LYMPHOCYTES # 1.1 10^3/ul (0.8-2.9); MEAN CORPUSCULAR HEMOGLOBIN 30.3 pg (29.0-33.0); MEAN CORPUSCULAR HGB CONC 32.2 g/dl (32.0-37.0); MEAN CORPUSCULAR VOLUME 94.1 fl (82.0-101.0); MEAN PLATELET VOLUME 12.4 fl (7.4-10.4); MONOCYTE # 0.8 10^3/ul (0.3-0.9); MONOCYTES % 7.1 % (0.0-11.0); NEUTROPHIL # 9.5 10^3/ul (1.6-7.5); NEUTROPHILS % 81.3 % (39.0-77.0); PLATELET COUNT 267 10^3/UL (140-415); RED CELL DISTRIBUTION WIDTH 12.4 % (11.5-14.5)
[2019-03-12 05:49] LABS: WHITE BLOOD COUNT 11.7 10^3/ul (4.8-10.8)
[2019-03-12 06:38] LABS: ALANINE AMINOTRANSFERASE 39 IU/L (13-69); ALBUMIN 3.1 g/dl (3.3-4.9); ALKALINE PHOSPHATASE 102 IU/L (42-121); ANION GAP 5 (5-13); ASPARTATE AMINO TRANSFERASE 41 IU/L (15-46); BILIRUBIN,INDIRECT 0.4 mg/dl (0-1.1); BILIRUBIN,TOTAL 0.4 mg/dl (0.2-1.3); BLOOD UREA NITROGEN 25 mg/dl (7-20); CALCIUM 7.9 mg/dl (8.4-10.2); CARBON DIOXIDE 32 mmol/L (21-31); CHLORIDE 100 mmol/L (97-110); CREATININE 0.59 mg/dl (0.61-1.24); Estimated GFR > 60 mL/min (>60); GLUCOSE 120 mg/dl (70-220); SODIUM 137 mmol/L (135-144); TOTAL PROTEIN 5.9 g/dl (6.1-8.1)
[2019-03-12] MEDS: ASPIRIN 81 MG TAB PO (08:52)
[2019-03-12] MEDS: ACYCLOVIR 400 MG TAB NGT ×3 (08:52→20:34)
[2019-03-12] MEDS: CEFTRIAXONE 2 GM/50 ML (PMX) 50 ML IVPB ×2 (08:52→20:34)
[2019-03-12] MEDS: FAMOTIDINE 20 MG INJ IV ×2 (08:55→20:34)
[2019-03-12] MEDS: PROPOFOL 100 ML IV ×2 (10:46)
[2019-03-12] MEDS: INSULIN GLARGINE [LANTus] (100 UNITS/ML) SYG SC (20:38)
[2019-03-13] MEDS: INSULIN ASPART [NOVOLOG] 3 ML PEN SC ×5 (01:48→17:58)
[2019-03-13 05:12] LABS: ADD MAN DIFF? NO
[2019-03-13 05:36] LABS: WHITE BLOOD COUNT 11.4 10^3/ul (4.8-10.8)
[2019-03-13 05:36] LABS: BASOPHILS % 0.2 % (0.0-2.0); EOSINOPHILS # 0.1 10^3/ul (0.0-0.5); EOSINOPHILS % 1.1 % (0.0-7.0); HEMATOCRIT 34.4 % (42.0-52.0); LYMPHOCYTES # 0.8 10^3/ul (0.8-2.9); LYMPHOCYTES % 7.1 % (15.0-51.0); MEAN CORPUSCULAR HEMOGLOBIN 29.8 pg (29.0-33.0); MEAN CORPUSCULAR VOLUME 93.2 fl (82.0-101.0); MEAN PLATELET VOLUME 12.7 fl (7.4-10.4); MONOCYTE # 0.6 10^3/ul (0.3-0.9); MONOCYTES % 5.4 % (0.0-11.0); NEUTROPHIL # 9.7 10^3/ul (1.6-7.5); NEUTROPHILS % 85.5 % (39.0-77.0); PLATELET COUNT 267 10^3/UL (140-415); RED BLOOD COUNT 3.69 10^6/ul (4.70-6.10); RED CELL DISTRIBUTION WIDTH 12.5 % (11.5-14.5)
[2019-03-13 05:55] LABS: ANION GAP 7 (5-13); BLOOD UREA NITROGEN 20 mg/dl (7-20); CALCIUM 7.9 mg/dl (8.4-10.2); CARBON DIOXIDE 32 mmol/L (21-31); CHLORIDE 100 mmol/L (97-110); CREATININE 0.55 mg/dl (0.61-1.24); Estimated GFR > 60 mL/min (>60); GLUCOSE 127 mg/dl (70-220); POTASSIUM 3.9 mmol/L (3.5-5.1); SODIUM 139 mmol/L (135-144)
[2019-03-13] MEDS: DOCUSATE SODIUM 10 MG/ML (10ML CUP) NGT (07:25)
[2019-03-13] MEDS: FAMOTIDINE 20 MG INJ IV ×2 (07:25→21:10)
[2019-03-13] MEDS: ACYCLOVIR 400 MG TAB NGT ×3 (07:25→21:13)
[2019-03-13] MEDS: ASPIRIN 81 MG TAB PO (07:25)
[2019-03-13] MEDS: CEFTRIAXONE 2 GM/50 ML (PMX) 50 ML IVPB ×2 (07:32→21:10)
[2019-03-13 08:53] LABS: PROCALCITONIN 0.05 ng/mL (0.00-0.10)
[2019-03-13] MEDS: PROPOFOL 100 ML IV ×2 (11:42)
[2019-03-13] MEDS ORDERED: LORAZEPAM 2 MG INJ IV (19:30)
[2019-03-13] MEDS: INSULIN GLARGINE [LANTus] (100 UNITS/ML) SYG SC (21:21)
[2019-03-14] MEDS: INSULIN ASPART [NOVOLOG] 3 ML PEN SC ×4 (06:00→18:00)
[2019-03-14 07:52] LABS: ADD MAN DIFF? NO
[2019-03-14 07:57] LABS: BASOPHILS % 0.1 % (0.0-2.0); EOSINOPHILS # 0.2 10^3/ul (0.0-0.5); EOSINOPHILS % 1.8 % (0.0-7.0); HEMATOCRIT 35.3 % (42.0-52.0); HEMOGLOBIN 11.2 g/dl (14.0-18.0); LYMPHOCYTES # 1.1 10^3/ul (0.8-2.9); LYMPHOCYTES % 10.8 % (15.0-51.0); MEAN CORPUSCULAR HEMOGLOBIN 29.6 pg (29.0-33.0); MEAN CORPUSCULAR HGB CONC 31.7 g/dl (32.0-37.0); MEAN CORPUSCULAR VOLUME 93.4 fl (82.0-101.0); MEAN PLATELET VOLUME 12.3 fl (7.4-10.4); MONOCYTE # 0.6 10^3/ul (0.3-0.9); MONOCYTES % 6.4 % (0.0-11.0); NEUTROPHILS % 80.2 % (39.0-77.0); PLATELET COUNT 275 10^3/UL (140-415); RED BLOOD COUNT 3.78 10^6/ul (4.70-6.10); RED CELL DISTRIBUTION WIDTH 12.8 % (11.5-14.5)
[2019-03-14 08:13] LABS: INR 0.89; PROTIME 12.2 Sec (11.9-14.9)
[2019-03-14] MEDS: FAMOTIDINE 20 MG INJ IV ×2 (08:23→21:37)
[2019-03-14] MEDS: CEFTRIAXONE 2 GM/50 ML (PMX) 50 ML IVPB ×2 (08:23→20:47)
[2019-03-14] MEDS: ASPIRIN 81 MG TAB PO (08:24)
[2019-03-14] MEDS: ACYCLOVIR 400 MG TAB NGT ×3 (08:24→21:37)
[2019-03-14 08:27] LABS: PHOSPHORUS 4.4 mg/dl (2.5-4.9)
[2019-03-14 08:27] LABS: MAGNESIUM 2.9 mg/dl (1.7-2.5)
[2019-03-14 08:59] LABS: ANION GAP 6 (5-13); BLOOD UREA NITROGEN 16 mg/dl (7-20); CALCIUM 8.2 mg/dl (8.4-10.2); CARBON DIOXIDE 34 mmol/L (21-31); CHLORIDE 101 mmol/L (97-110); CREATININE 0.59 mg/dl (0.61-1.24); Estimated GFR > 60 mL/min (>60); GLUCOSE 105 mg/dl (70-220); POTASSIUM 4.2 mmol/L (3.5-5.1); SODIUM 141 mmol/L (135-144)
[2019-03-14] MEDS: PROPOFOL 100 ML IV ×2 (12:00)
[2019-03-14 18:33] LABS: TROPONIN-I < 0.012 ng/ml (0.000-0.120)
[2019-03-14] MEDS: INSULIN GLARGINE [LANTus] (100 UNITS/ML) SYG SC (21:37)
[2019-03-15 05:37] LABS: ADD MAN DIFF? NO
[2019-03-15 05:54] LABS: BASOPHILS % 0.2 % (0.0-2.0); EOSINOPHILS # 0.2 10^3/ul (0.0-0.5); EOSINOPHILS % 1.7 % (0.0-7.0); HEMATOCRIT 33.3 % (42.0-52.0); HEMOGLOBIN 10.8 g/dl (14.0-18.0); LYMPHOCYTES % 11.3 % (15.0-51.0); MEAN CORPUSCULAR HEMOGLOBIN 29.9 pg (29.0-33.0); MEAN CORPUSCULAR HGB CONC 32.4 g/dl (32.0-37.0); MEAN CORPUSCULAR VOLUME 92.2 fl (82.0-101.0); MEAN PLATELET VOLUME 12.2 fl (7.4-10.4); MONOCYTE # 0.4 10^3/ul (0.3-0.9); NEUTROPHIL # 7.2 10^3/ul (1.6-7.5); PLATELET COUNT 323 10^3/UL (140-415); RED BLOOD COUNT 3.61 10^6/ul (4.70-6.10); RED CELL DISTRIBUTION WIDTH 12.9 % (11.5-14.5)
[2019-03-15 05:54] LABS: WHITE BLOOD COUNT 8.9 10^3/ul (4.8-10.8)
[2019-03-15] MEDS: INSULIN ASPART [NOVOLOG] 3 ML PEN SC ×4 (06:00→18:00)
[2019-03-15 06:22] LABS: MAGNESIUM 2.8 mg/dl (1.7-2.5)
[2019-03-15 06:22] LABS: PHOSPHORUS 4.7 mg/dl (2.5-4.9)
[2019-03-15 06:31] LABS: ANION GAP 6 (5-13); BLOOD UREA NITROGEN 17 mg/dl (7-20); CALCIUM 8.1 mg/dl (8.4-10.2); CARBON DIOXIDE 31 mmol/L (21-31); CHLORIDE 102 mmol/L (97-110); CREATININE 0.64 mg/dl (0.61-1.24); Estimated GFR > 60 mL/min (>60); GLUCOSE 107 mg/dl (70-220); POTASSIUM 4.4 mmol/L (3.5-5.1); SODIUM 139 mmol/L (135-144)
[2019-03-15] MEDS: ACYCLOVIR 400 MG TAB NGT ×3 (09:12→20:29)
[2019-03-15] MEDS: CEFTRIAXONE 2 GM/50 ML (PMX) 50 ML IVPB ×2 (09:12→20:26)
[2019-03-15] MEDS: FAMOTIDINE 20 MG INJ IV ×2 (09:13→20:29)
[2019-03-15] MEDS: ASPIRIN 81 MG TAB PO (09:15)
[2019-03-15] MEDS: PROPOFOL 100 ML IV ×2 (11:50)
[2019-03-15] MEDS: INSULIN GLARGINE [LANTus] (100 UNITS/ML) SYG SC (20:28)
[2019-03-16] MEDS: PROPOFOL 100 ML IV
[2019-03-16] MEDS: INSULIN ASPART [NOVOLOG] 3 ML PEN SC ×4 (06:00→18:00)
[2019-03-16] MEDS: FAMOTIDINE 20 MG INJ IV ×2 (08:40→21:00)
[2019-03-16] MEDS: ACYCLOVIR 400 MG TAB NGT ×3 (08:40→20:51)
[2019-03-16] MEDS: ASPIRIN 81 MG TAB PO (08:40)
[2019-03-16] MEDS: CEFTRIAXONE 2 GM/50 ML (PMX) 50 ML IVPB ×2 (09:44→21:00)
[2019-03-16] MEDS: INSULIN GLARGINE [LANTus] (100 UNITS/ML) SYG SC (20:57)
[2019-03-17 05:25] LABS: ADD MAN DIFF? NO
[2019-03-17 05:35] LABS: BASOPHILS % 0.2 % (0.0-2.0); EOSINOPHILS # 0.3 10^3/ul (0.0-0.5); EOSINOPHILS % 4.3 % (0.0-7.0); HEMATOCRIT 30.4 % (42.0-52.0); HEMOGLOBIN 9.7 g/dl (14.0-18.0); LYMPHOCYTES # 0.9 10^3/ul (0.8-2.9); LYMPHOCYTES % 13.3 % (15.0-51.0); MEAN CORPUSCULAR HEMOGLOBIN 29.8 pg (29.0-33.0); MEAN CORPUSCULAR HGB CONC 31.9 g/dl (32.0-37.0); MEAN CORPUSCULAR VOLUME 93.5 fl (82.0-101.0); MEAN PLATELET VOLUME 11.8 fl (7.4-10.4); MONOCYTE # 0.4 10^3/ul (0.3-0.9); NEUTROPHIL # 4.9 10^3/ul (1.6-7.5); NEUTROPHILS % 75.4 % (39.0-77.0); PLATELET COUNT 275 10^3/UL (140-415); RED BLOOD COUNT 3.25 10^6/ul (4.70-6.10); RED CELL DISTRIBUTION WIDTH 13.3 % (11.5-14.5)
[2019-03-17 05:35] LABS: WHITE BLOOD COUNT 6.5 10^3/ul (4.8-10.8)
[2019-03-17] MEDS: INSULIN ASPART [NOVOLOG] 3 ML PEN SC ×5 (06:00→23:04)
[2019-03-17 06:07] LABS: ALANINE AMINOTRANSFERASE 28 IU/L (13-69); ALBUMIN 3.1 g/dl (3.3-4.9); ALBUMIN/GLOBULIN RATIO 0.96; ALKALINE PHOSPHATASE 78 IU/L (42-121); ANION GAP 5 (5-13); ASPARTATE AMINO TRANSFERASE 37 IU/L (15-46); BILIRUBIN,INDIRECT 0.4 mg/dl (0-1.1); BILIRUBIN,TOTAL 0.4 mg/dl (0.2-1.3); BLOOD UREA NITROGEN 22 mg/dl (7-20); CALCIUM 8.1 mg/dl (8.4-10.2); CARBON DIOXIDE 30 mmol/L (21-31); CHLORIDE 107 mmol/L (97-110); CREATININE 0.64 mg/dl (0.61-1.24); Estimated GFR > 60 mL/min (>60); GLUCOSE 89 mg/dl (70-220); SODIUM 142 mmol/L (135-144); TOTAL PROTEIN 6.3 g/dl (6.1-8.1)
[2019-03-17 06:10] LABS: PHOSPHORUS 4.4 mg/dl (2.5-4.9)
[2019-03-17 06:10] LABS: MAGNESIUM 2.8 mg/dl (1.7-2.5)
[2019-03-17] MEDS: CEFTRIAXONE 2 GM/50 ML (PMX) 50 ML IVPB ×2 (09:51→20:41)
[2019-03-17] MEDS: FOLIC ACID 1 MG TAB NGT (10:00)
[2019-03-17] MEDS: ASCORBIC ACID 250 MG TAB NGT (10:00)
[2019-03-17] MEDS: ACYCLOVIR 400 MG TAB NGT ×3 (10:00→20:41)
[2019-03-17] MEDS: ASPIRIN 81 MG TAB NGT (10:00)
[2019-03-17] MEDS: ZINC SULFATE 220 MG CAP NGT (10:00)
[2019-03-17] MEDS: FAMOTIDINE 20 MG INJ IV ×2 (10:00→21:15)
[2019-03-17] MEDS ORDERED: HYDROmorphONE 0.5 MG/0.5 ML SYG IV ×2 (18:30)
[2019-03-17] MEDS ORDERED: ONDANSETRON 4 MG INJ IV (18:30)
[2019-03-17] MEDS ORDERED: LABETALOL HCL 20MG INJ IV (18:30)
[2019-03-17] MEDS ORDERED: FENTAnyl 50 MCG/ML VIAL IV ×2 (18:30)
[2019-03-17] MEDS ORDERED: EPHEDrine 25 MG/5 ML SYG IV (18:30)
[2019-03-17] MEDS ORDERED: hydrALAzine 20 MG INJ IV (18:30)
[2019-03-17] MEDS ORDERED: PROPOFOL 20 ML (18:41)
[2019-03-17] MEDS ORDERED: ROCURONIUM 50 MG INJ (18:41)
[2019-03-17] MEDS: INSULIN GLARGINE [LANTus] (100 UNITS/ML) SYG SC (20:00)
[2019-03-18 04:59] LABS: ADD MAN DIFF? NO
[2019-03-18 05:05] LABS: BASOPHILS % 0.2 % (0.0-2.0); EOSINOPHILS # 0.3 10^3/ul (0.0-0.5); EOSINOPHILS % 4.1 % (0.0-7.0); HEMATOCRIT 32.6 % (42.0-52.0); HEMOGLOBIN 10.5 g/dl (14.0-18.0); LYMPHOCYTES # 0.9 10^3/ul (0.8-2.9); LYMPHOCYTES % 13.7 % (15.0-51.0); MEAN CORPUSCULAR HEMOGLOBIN 29.7 pg (29.0-33.0); MEAN CORPUSCULAR HGB CONC 32.2 g/dl (32.0-37.0); MEAN CORPUSCULAR VOLUME 92.4 fl (82.0-101.0); MEAN PLATELET VOLUME 10.9 fl (7.4-10.4); MONOCYTE # 0.4 10^3/ul (0.3-0.9); MONOCYTES % 5.7 % (0.0-11.0); NEUTROPHILS % 75.8 % (39.0-77.0); PLATELET COUNT 298 10^3/UL (140-415); RED BLOOD COUNT 3.53 10^6/ul (4.70-6.10); RED CELL DISTRIBUTION WIDTH 13.5 % (11.5-14.5)
[2019-03-18 05:05] LABS: WHITE BLOOD COUNT 6.6 10^3/ul (4.8-10.8)
[2019-03-18 05:30] LABS: ALANINE AMINOTRANSFERASE 30 IU/L (13-69); ALBUMIN 3.2 g/dl (3.3-4.9); ALBUMIN/GLOBULIN RATIO 0.94; ALKALINE PHOSPHATASE 83 IU/L (42-121); ANION GAP 8 (5-13); ASPARTATE AMINO TRANSFERASE 37 IU/L (15-46); BILIRUBIN,INDIRECT 0.4 mg/dl (0-1.1); BILIRUBIN,TOTAL 0.4 mg/dl (0.2-1.3); BLOOD UREA NITROGEN 21 mg/dl (7-20); CALCIUM 8.4 mg/dl (8.4-10.2); CARBON DIOXIDE 26 mmol/L (21-31); CHLORIDE 107 mmol/L (97-110); CREATININE 0.73 mg/dl (0.61-1.24); Estimated GFR > 60 mL/min (>60); GLUCOSE 102 mg/dl (70-220); POTASSIUM 3.8 mmol/L (3.5-5.1); SODIUM 141 mmol/L (135-144); TOTAL PROTEIN 6.6 g/dl (6.1-8.1)
[2019-03-18] MEDS: INSULIN ASPART [NOVOLOG] 3 ML PEN SC ×3 (06:00→17:30)
[2019-03-18] MEDS: ZINC SULFATE 220 MG CAP NGT (08:56)
[2019-03-18] MEDS: FOLIC ACID 1 MG TAB NGT (08:56)
[2019-03-18] MEDS: ACYCLOVIR 400 MG TAB NGT ×3 (08:56→20:46)
[2019-03-18] MEDS: CEFTRIAXONE 2 GM/50 ML (PMX) 50 ML IVPB ×2 (08:57→20:45)
[2019-03-18] MEDS: ASCORBIC ACID 250 MG TAB NGT (08:59)
[2019-03-18] MEDS: FAMOTIDINE 20 MG INJ IV ×2 (09:01→20:46)
[2019-03-18] MEDS: BISACODYL 10 MG SUPP PR (16:20)
[2019-03-18] MEDS ORDERED: hydrALAzine 20 MG INJ IV (20:00)
[2019-03-18] MEDS: INSULIN GLARGINE [LANTus] (100 UNITS/ML) SYG SC (20:47)
[2019-03-18] MEDS ORDERED: MUPIROCIN 2% 22 GM OINT TOP (21:00)
[2019-03-19] MEDS: INSULIN ASPART [NOVOLOG] 3 ML PEN SC ×4 (01:11→18:00)
[2019-03-19] MEDS: LIDOCAINE 2% (SDV) 5 ML INJ (04:32)
[2019-03-19] MEDS: PROPOFOL 40 ML (04:32)
[2019-03-19] MEDS: PROPOFOL 100 ML IV ×3 (04:33→12:00)
[2019-03-19 05:10] LABS: ADD MAN DIFF? NO
[2019-03-19 05:18] LABS: WHITE BLOOD COUNT 7.7 10^3/ul (4.8-10.8)
[2019-03-19 05:19] LABS: BASOPHILS % 0.1 % (0.0-2.0); EOSINOPHILS # 0.2 10^3/ul (0.0-0.5); EOSINOPHILS % 2.9 % (0.0-7.0); HEMATOCRIT 33.8 % (42.0-52.0); HEMOGLOBIN 10.8 g/dl (14.0-18.0); LYMPHOCYTES # 0.8 10^3/ul (0.8-2.9); LYMPHOCYTES % 10.8 % (15.0-51.0); MEAN CORPUSCULAR VOLUME 93.9 fl (82.0-101.0); MEAN PLATELET VOLUME 11.5 fl (7.4-10.4); MONOCYTE # 0.4 10^3/ul (0.3-0.9); MONOCYTES % 5.7 % (0.0-11.0); NEUTROPHIL # 6.2 10^3/ul (1.6-7.5); NEUTROPHILS % 79.9 % (39.0-77.0); PLATELET COUNT 243 10^3/UL (140-415); RED CELL DISTRIBUTION WIDTH 13.7 % (11.5-14.5)
[2019-03-19 05:43] LABS: ALANINE AMINOTRANSFERASE 39 IU/L (13-69); ALBUMIN 3.3 g/dl (3.3-4.9); ALBUMIN/GLOBULIN RATIO 0.91; ALKALINE PHOSPHATASE 95 IU/L (42-121); ANION GAP 6 (5-13); ASPARTATE AMINO TRANSFERASE 48 IU/L (15-46); BILIRUBIN,INDIRECT 0.4 mg/dl (0-1.1); BILIRUBIN,TOTAL 0.4 mg/dl (0.2-1.3); BLOOD UREA NITROGEN 23 mg/dl (7-20); CALCIUM 8.3 mg/dl (8.4-10.2); CARBON DIOXIDE 30 mmol/L (21-31); CHLORIDE 106 mmol/L (97-110); Estimated GFR > 60 mL/min (>60); GLUCOSE 133 mg/dl (70-220); POTASSIUM 4.1 mmol/L (3.5-5.1); SODIUM 142 mmol/L (135-144); TOTAL PROTEIN 6.9 g/dl (6.1-8.1)
[2019-03-19 05:44] LABS: MAGNESIUM 2.7 mg/dl (1.7-2.5)
[2019-03-19 05:44] LABS: PHOSPHORUS 4.9 mg/dl (2.5-4.9)
[2019-03-19] MEDS: ZINC SULFATE 220 MG CAP NGT (09:39)
[2019-03-19] MEDS: FOLIC ACID 1 MG TAB NGT (09:39)
[2019-03-19] MEDS: ACYCLOVIR 400 MG TAB NGT ×3 (09:39→21:18)
[2019-03-19] MEDS: CEFTRIAXONE 2 GM/50 ML (PMX) 50 ML IVPB ×2 (09:39→21:18)
[2019-03-19] MEDS: FAMOTIDINE 20 MG INJ IV ×2 (09:39→21:18)
[2019-03-19] MEDS: ASCORBIC ACID 250 MG TAB NGT (09:39)
[2019-03-19] MEDS: METOCLOPRAMIDE 10 MG INJ IV (14:00)
[2019-03-20 05:14] LABS: ADD MAN DIFF? NO
[2019-03-20 05:20] LABS: BASOPHILS % 0.3 % (0.0-2.0); EOSINOPHILS # 0.2 10^3/ul (0.0-0.5); EOSINOPHILS % 3.5 % (0.0-7.0); LYMPHOCYTES # 0.8 10^3/ul (0.8-2.9); LYMPHOCYTES % 13.6 % (15.0-51.0); MEAN CORPUSCULAR HEMOGLOBIN 30.2 pg (29.0-33.0); MEAN CORPUSCULAR HGB CONC 32.3 g/dl (32.0-37.0); MEAN CORPUSCULAR VOLUME 93.7 fl (82.0-101.0); MEAN PLATELET VOLUME 10.7 fl (7.4-10.4); MONOCYTE # 0.4 10^3/ul (0.3-0.9); MONOCYTES % 6.2 % (0.0-11.0); NEUTROPHIL # 4.5 10^3/ul (1.6-7.5); NEUTROPHILS % 75.6 % (39.0-77.0); PLATELET COUNT 263 10^3/UL (140-415); RED BLOOD COUNT 3.31 10^6/ul (4.70-6.10); RED CELL DISTRIBUTION WIDTH 13.9 % (11.5-14.5)
[2019-03-20 05:39] LABS: AADO2 Arterial 32.5 mmHg (7.0-24.0); Allen Test ACCEPTAB; Arterial Base Excess 3.2 mmol/L (-3.0-3); Arterial Blood Gas Oxygen Sat 98.4 mmHG (95.0-98.0); Arterial COHb 0.3 % (0.0-3.0); Arterial Fraction of Oxyhgb 97.9 % (93.0-99.0); Arterial HCO3 27.7 mmol/L (22.0-26.0); Arterial MetHb 0.2 % (0.0-1.5); MODE VENT - AC; Site Right Radial
[2019-03-20 06:06] LABS: ALANINE AMINOTRANSFERASE 42 IU/L (13-69); ALBUMIN 3.1 g/dl (3.3-4.9); ALKALINE PHOSPHATASE 94 IU/L (42-121); ANION GAP 7 (5-13); ASPARTATE AMINO TRANSFERASE 47 IU/L (15-46); BILIRUBIN,INDIRECT 0.3 mg/dl (0-1.1); BILIRUBIN,TOTAL 0.3 mg/dl (0.2-1.3); BLOOD UREA NITROGEN 18 mg/dl (7-20); CALCIUM 8.3 mg/dl (8.4-10.2); CARBON DIOXIDE 30 mmol/L (21-31); CHLORIDE 105 mmol/L (97-110); CREATININE 0.64 mg/dl (0.61-1.24); Estimated GFR > 60 mL/min (>60); GLUCOSE 136 mg/dl (70-220); POTASSIUM 4.1 mmol/L (3.5-5.1); SODIUM 142 mmol/L (135-144); TOTAL PROTEIN 6.2 g/dl (6.1-8.1)
[2019-03-20] MEDS: ZINC SULFATE 220 MG CAP NGT (12:15)
[2019-03-20] MEDS: ACYCLOVIR 400 MG TAB NGT ×3 (12:15→20:13)
[2019-03-20] MEDS: FAMOTIDINE 20 MG INJ IV ×2 (12:15→20:13)
[2019-03-20] MEDS: FOLIC ACID 1 MG TAB NGT (12:15)
[2019-03-20] MEDS: ASCORBIC ACID 250 MG TAB NGT (12:16)
[2019-03-20] MEDS: CEFTRIAXONE 2 GM/50 ML (PMX) 50 ML IVPB ×2 (12:36→20:12)
[2019-03-21 05:30] LABS: ADD MAN DIFF? NO
[2019-03-21 05:34] LABS: BASOPHILS % 0.2 % (0.0-2.0); EOSINOPHILS # 0.2 10^3/ul (0.0-0.5); EOSINOPHILS % 3.6 % (0.0-7.0); HEMATOCRIT 31.5 % (42.0-52.0); HEMOGLOBIN 10.2 g/dl (14.0-18.0); LYMPHOCYTES # 0.9 10^3/ul (0.8-2.9); LYMPHOCYTES % 17.2 % (15.0-51.0); MEAN CORPUSCULAR HEMOGLOBIN 30.2 pg (29.0-33.0); MEAN CORPUSCULAR HGB CONC 32.4 g/dl (32.0-37.0); MEAN CORPUSCULAR VOLUME 93.2 fl (82.0-101.0); MEAN PLATELET VOLUME 10.3 fl (7.4-10.4); MONOCYTE # 0.3 10^3/ul (0.3-0.9); MONOCYTES % 4.9 % (0.0-11.0); NEUTROPHIL # 3.7 10^3/ul (1.6-7.5); NEUTROPHILS % 73.7 % (39.0-77.0); PLATELET COUNT 250 10^3/UL (140-415); RED BLOOD COUNT 3.38 10^6/ul (4.70-6.10); RED CELL DISTRIBUTION WIDTH 14.1 % (11.5-14.5)
[2019-03-21 05:34] LABS: WHITE BLOOD COUNT 5.1 10^3/ul (4.8-10.8)
[2019-03-21 05:55] LABS: MAGNESIUM 2.5 mg/dl (1.7-2.5)
[2019-03-21 05:55] LABS: PHOSPHORUS 4.3 mg/dl (2.5-4.9)
[2019-03-21 05:57] LABS: ALANINE AMINOTRANSFERASE 33 IU/L (13-69); ALBUMIN 3.2 g/dl (3.3-4.9); ALBUMIN/GLOBULIN RATIO 0.96; ALKALINE PHOSPHATASE 93 IU/L (42-121); ANION GAP 6 (5-13); ASPARTATE AMINO TRANSFERASE 35 IU/L (15-46); BILIRUBIN,INDIRECT 0.3 mg/dl (0-1.1); BILIRUBIN,TOTAL 0.3 mg/dl (0.2-1.3); BLOOD UREA NITROGEN 18 mg/dl (7-20); CALCIUM 8.5 mg/dl (8.4-10.2); CARBON DIOXIDE 30 mmol/L (21-31); CHLORIDE 105 mmol/L (97-110); CREATININE 0.66 mg/dl (0.61-1.24); Estimated GFR > 60 mL/min (>60); GLUCOSE 129 mg/dl (70-220); POTASSIUM 4.2 mmol/L (3.5-5.1); SODIUM 141 mmol/L (135-144); TOTAL PROTEIN 6.5 g/dl (6.1-8.1)
[2019-03-21] MEDS: ZINC SULFATE 220 MG CAP NGT (09:44)
[2019-03-21] MEDS: FAMOTIDINE 20 MG INJ IV ×2 (09:44→20:38)
[2019-03-21] MEDS: FOLIC ACID 1 MG TAB NGT (09:44)
[2019-03-21] MEDS: ASCORBIC ACID 250 MG TAB NGT (09:44)
[2019-03-21] MEDS: CEFTRIAXONE 2 GM/50 ML (PMX) 50 ML IVPB ×2 (10:57→20:38)
[2019-03-21] MEDS: ACETAMINOPHEN 650MG/20.3ML CUP NGT (20:38)
[2019-03-22 06:01] LABS: ALANINE AMINOTRANSFERASE 48 IU/L (13-69); ALBUMIN 3.3 g/dl (3.3-4.9); ALKALINE PHOSPHATASE 92 IU/L (42-121); ANION GAP 5 (5-13); ASPARTATE AMINO TRANSFERASE 50 IU/L (15-46); BILIRUBIN,INDIRECT 0.4 mg/dl (0-1.1); BILIRUBIN,TOTAL 0.4 mg/dl (0.2-1.3); BLOOD UREA NITROGEN 18 mg/dl (7-20); CALCIUM 8.2 mg/dl (8.4-10.2); CARBON DIOXIDE 33 mmol/L (21-31); CHLORIDE 102 mmol/L (97-110); CREATININE 0.67 mg/dl (0.61-1.24); Estimated GFR > 60 mL/min (>60); GLUCOSE 126 mg/dl (70-220); SODIUM 140 mmol/L (135-144); TOTAL PROTEIN 6.6 g/dl (6.1-8.1)
[2019-03-22] MEDS: FOLIC ACID 1 MG TAB NGT (07:45)
[2019-03-22] MEDS: ASCORBIC ACID 250 MG TAB NGT (07:45)
[2019-03-22] MEDS: CEFTRIAXONE 2 GM/50 ML (PMX) 50 ML IVPB ×2 (07:45→20:12)
[2019-03-22] MEDS: ZINC SULFATE 220 MG CAP NGT (07:45)
[2019-03-22] MEDS: FAMOTIDINE 20 MG INJ IV ×2 (07:45→20:12)
[2019-03-23] MEDS ORDERED: BISACODYL 10 MG SUPP PR ×2 (05:30)
[2019-03-23 06:00] LABS: MAGNESIUM 2.5 mg/dl (1.7-2.5)
[2019-03-23 06:00] LABS: PHOSPHORUS 4.6 mg/dl (2.5-4.9)
[2019-03-23] MEDS: ACETAMINOPHEN 650MG/20.3ML CUP NGT (08:47)
[2019-03-23] MEDS: ZINC SULFATE 220 MG CAP NGT (08:47)
[2019-03-23] MEDS: FAMOTIDINE 20 MG INJ IV (08:47)
[2019-03-23] MEDS: FOLIC ACID 1 MG TAB NGT (08:48)
[2019-03-23] MEDS: ASCORBIC ACID 250 MG TAB NGT (08:48)
[2019-03-23] MEDS: CEFTRIAXONE 2 GM/50 ML (PMX) 50 ML IVPB ×2 (08:49→20:47)
[2019-03-23 15:17] LABS: ADD UMIC NO; UR ASCORBIC ACID 40 mg/dL (NEGATIVE); UR BILIRUBIN (Dip) NEGATIVE (NEGATIVE); UR BLOOD (Dip) NEGATIVE (NEGATIVE); UR CLARITY SLIGHTLY CLOUDY (CLEAR); UR COLOR YELLOW (YELLOW); UR GLUCOSE (Dip) NEGATIVE (NEGATIVE); UR KETONES (Dip) NEGATIVE (NEGATIVE); UR LEUKOCYTE ESTERASE (Dip) NEGATIVE Leu/ul (NEGATIVE); UR MUCUS FEW /HPF (NONE SEEN); UR NITRITE (Dip) NEGATIVE (NEGATIVE); UR RBC 21 /HPF (0-5); UR SPECIFIC GRAVITY (Dip) 1.033 (1.003-1.030); UR TOTAL PROTEIN (Dip) NEGATIVE (NEGATIVE); UR UROBILINOGEN (Dip) 1+ mg/dL (NEGATIVE); UR WBC 2 /HPF (0-5)
[2019-03-23] MEDS ORDERED: FAMOTIDINE 20 MG INJ (20:20)
[2019-03-23] MEDS: FAMOTIDINE 20 MG TAB PO (20:52)
[2019-03-24 05:35] LABS: ADD MAN DIFF? NO
[2019-03-24 05:56] LABS: BASOPHILS % 0.2 % (0.0-2.0); EOSINOPHILS # 0.2 10^3/ul (0.0-0.5); HEMATOCRIT 30.5 % (42.0-52.0); HEMOGLOBIN 9.6 g/dl (14.0-18.0); LYMPHOCYTES % 17.3 % (15.0-51.0); MEAN CORPUSCULAR HEMOGLOBIN 29.7 pg (29.0-33.0); MEAN CORPUSCULAR HGB CONC 31.5 g/dl (32.0-37.0); MEAN CORPUSCULAR VOLUME 94.4 fl (82.0-101.0); MEAN PLATELET VOLUME 11.2 fl (7.4-10.4); MONOCYTE # 0.3 10^3/ul (0.3-0.9); NEUTROPHILS % 72.1 % (39.0-77.0); PLATELET COUNT 216 10^3/UL (140-415); RED BLOOD COUNT 3.23 10^6/ul (4.70-6.10); RED CELL DISTRIBUTION WIDTH 14.4 % (11.5-14.5)
[2019-03-24 05:56] LABS: WHITE BLOOD COUNT 5.5 10^3/ul (4.8-10.8)
[2019-03-24 06:30] LABS: ANION GAP 5 (5-13); BLOOD UREA NITROGEN 21 mg/dl (7-20); CALCIUM 8.4 mg/dl (8.4-10.2); CARBON DIOXIDE 33 mmol/L (21-31); CHLORIDE 103 mmol/L (97-110); CREATININE 0.59 mg/dl (0.61-1.24); Estimated GFR > 60 mL/min (>60); GLUCOSE 124 mg/dl (70-220); SODIUM 141 mmol/L (135-144)
[2019-03-24 06:51] LABS: PROCALCITONIN < 0.02 ng/mL (0.00-0.10)
[2019-03-24] MEDS: ZINC SULFATE 220 MG CAP NGT (09:32)
[2019-03-24] MEDS: ASCORBIC ACID 250 MG TAB NGT (09:32)
[2019-03-24] MEDS: FAMOTIDINE 20 MG TAB PO ×2 (09:32→20:18)
[2019-03-24] MEDS: FOLIC ACID 1 MG TAB NGT (09:32)
[2019-03-24] MEDS: CEFTRIAXONE 2 GM/50 ML (PMX) 50 ML IVPB ×2 (09:33→20:18)
[2019-03-25 05:53] LABS: PHOSPHORUS 5.3 mg/dl (2.5-4.9)
[2019-03-25 05:53] LABS: MAGNESIUM 2.4 mg/dl (1.7-2.5)
[2019-03-25] MEDS: FAMOTIDINE 20 MG TAB PO ×2 (08:37→21:22)
[2019-03-25] MEDS: ASCORBIC ACID 250 MG TAB NGT (08:37)
[2019-03-25] MEDS: ZINC SULFATE 220 MG CAP NGT (08:38)
[2019-03-25] MEDS: CEFTRIAXONE 2 GM/50 ML (PMX) 50 ML IVPB (08:38)
[2019-03-25] MEDS: FOLIC ACID 1 MG TAB NGT (08:38)
[2019-03-25] MEDS: BALSAM PERU/CASTOR OIL 60 GM TUBE TOP ×2 (14:19→21:22)
[2019-03-26] MEDS: CEFTRIAXONE 2 GM/50 ML (PMX) 50 ML IVPB ×3 (00:53→21:20)
[2019-03-26] MEDS: FOLIC ACID 1 MG TAB NGT (09:28)
[2019-03-26] MEDS: ASCORBIC ACID 250 MG TAB NGT (09:29)
[2019-03-26] MEDS: ZINC SULFATE 220 MG CAP NGT (09:29)
[2019-03-26] MEDS: FAMOTIDINE 20 MG TAB PO ×2 (09:29→21:20)
[2019-03-26] MEDS: BALSAM PERU/CASTOR OIL 60 GM TUBE TOP ×2 (09:30→21:21)
[2019-03-27] MEDS: CEFTRIAXONE 2 GM/50 ML (PMX) 50 ML IVPB ×2 (09:36→21:49)
[2019-03-27] MEDS: ASCORBIC ACID 250 MG TAB NGT (09:37)
[2019-03-27] MEDS: FAMOTIDINE 20 MG TAB PO ×2 (09:37→21:49)
[2019-03-27] MEDS: FOLIC ACID 1 MG TAB NGT (09:37)
[2019-03-27] MEDS: ZINC SULFATE 220 MG CAP NGT (09:37)
[2019-03-27] MEDS: BALSAM PERU/CASTOR OIL 60 GM TUBE TOP ×2 (09:38→21:49)
[2019-03-28 09:47] LABS: ADD MAN DIFF? NO
[2019-03-28 09:53] LABS: WHITE BLOOD COUNT 4.8 10^3/ul (4.8-10.8)
[2019-03-28 09:53] LABS: BASOPHILS % 0.4 % (0.0-2.0); EOSINOPHILS # 0.3 10^3/ul (0.0-0.5); EOSINOPHILS % 5.2 % (0.0-7.0); HEMOGLOBIN 10.5 g/dl (14.0-18.0); LYMPHOCYTES % 19.9 % (15.0-51.0); MEAN CORPUSCULAR HEMOGLOBIN 30.3 pg (29.0-33.0); MEAN CORPUSCULAR HGB CONC 32.8 g/dl (32.0-37.0); MEAN CORPUSCULAR VOLUME 92.2 fl (82.0-101.0); MEAN PLATELET VOLUME 12.2 fl (7.4-10.4); MONOCYTE # 0.5 10^3/ul (0.3-0.9); MONOCYTES % 9.8 % (0.0-11.0); NEUTROPHIL # 3.1 10^3/ul (1.6-7.5); NEUTROPHILS % 63.9 % (39.0-77.0); PLATELET COUNT 253 10^3/UL (140-415); RED BLOOD COUNT 3.47 10^6/ul (4.70-6.10); RED CELL DISTRIBUTION WIDTH 14.6 % (11.5-14.5)
[2019-03-28] MEDS: FOLIC ACID 1 MG TAB NGT (10:01)
[2019-03-28] MEDS: FAMOTIDINE 20 MG TAB PO ×2 (10:01→21:11)
[2019-03-28] MEDS: BALSAM PERU/CASTOR OIL 60 GM TUBE TOP ×2 (10:01→21:12)
[2019-03-28] MEDS: ZINC SULFATE 220 MG CAP NGT (10:01)
[2019-03-28] MEDS: ASCORBIC ACID 250 MG TAB NGT (10:02)
[2019-03-28] MEDS: CEFTRIAXONE 2 GM/50 ML (PMX) 50 ML IVPB ×2 (10:02→21:10)
[2019-03-28 10:09] LABS: INR 1.03; PROTIME 13.6 Sec (11.9-14.9); PT RATIO 1.1
[2019-03-28 10:17] LABS: ANION GAP 7 (5-13); BLOOD UREA NITROGEN 14 mg/dl (7-20); CALCIUM 8.4 mg/dl (8.4-10.2); CARBON DIOXIDE 29 mmol/L (21-31); CHLORIDE 102 mmol/L (97-110); CREATININE 0.59 mg/dl (0.61-1.24); Estimated GFR > 60 mL/min (>60); GLUCOSE 101 mg/dl (70-220); POTASSIUM 4.2 mmol/L (3.5-5.1); SODIUM 138 mmol/L (135-144)
[2019-03-29] MEDS: ZINC SULFATE 220 MG CAP NGT (08:23)
[2019-03-29] MEDS: FOLIC ACID 1 MG TAB NGT (08:23)
[2019-03-29] MEDS: CEFTRIAXONE 2 GM/50 ML (PMX) 50 ML IVPB ×2 (08:23→21:31)
[2019-03-29] MEDS: BALSAM PERU/CASTOR OIL 60 GM TUBE TOP ×2 (08:23→21:31)
[2019-03-29] MEDS: ASCORBIC ACID 250 MG TAB NGT (08:23)
[2019-03-29] MEDS: FAMOTIDINE 20 MG TAB PO ×2 (08:23→21:31)
[2019-03-30] MEDS: FOLIC ACID 1 MG TAB NGT (09:08)
[2019-03-30] MEDS: ZINC SULFATE 220 MG CAP NGT (09:08)
[2019-03-30] MEDS: FAMOTIDINE 20 MG TAB PO ×2 (09:08→20:13)
[2019-03-30] MEDS: ASCORBIC ACID 250 MG TAB NGT (09:08)
[2019-03-30] MEDS: BALSAM PERU/CASTOR OIL 60 GM TUBE TOP ×2 (09:09→20:13)
[2019-03-30] MEDS: ENOXAPARIN 30 MG/0.3 ML SYG SC (12:57)
[2019-03-31] MEDS: FOLIC ACID 1 MG TAB NGT (09:41)
[2019-03-31] MEDS: FAMOTIDINE 20 MG TAB PO ×2 (09:41→21:46)
[2019-03-31] MEDS: ZINC SULFATE 220 MG CAP NGT (09:41)
[2019-03-31] MEDS: ASCORBIC ACID 250 MG TAB NGT (09:41)
[2019-03-31] MEDS: ENOXAPARIN 30 MG/0.3 ML SYG SC (09:44)
[2019-03-31] MEDS: BALSAM PERU/CASTOR OIL 60 GM TUBE TOP ×2 (09:45→21:46)
[2019-03-31] MEDS: ACETAMINOPHEN 650MG/20.3ML CUP NGT (11:51)
[2019-04-01] MEDS: ZINC SULFATE 220 MG CAP NGT (09:03)
[2019-04-01] MEDS: ASCORBIC ACID 250 MG TAB NGT (09:03)
[2019-04-01] MEDS: BALSAM PERU/CASTOR OIL 60 GM TUBE TOP ×2 (09:03→21:00)
[2019-04-01] MEDS: FOLIC ACID 1 MG TAB NGT (09:03)
[2019-04-01] MEDS: FAMOTIDINE 20 MG TAB PO ×2 (09:03→22:19)
[2019-04-02] MEDS: FAMOTIDINE 20 MG TAB PO ×2 (09:19→21:34)
[2019-04-02] MEDS: ZINC SULFATE 220 MG CAP NGT (09:19)
[2019-04-02] MEDS: FOLIC ACID 1 MG TAB NGT (09:19)
[2019-04-02] MEDS: METOCLOPRAMIDE 10 MG INJ IV (09:19)
[2019-04-02] MEDS: DOCUSATE SODIUM 10 MG/ML (10ML CUP) NGT (09:19)
[2019-04-02] MEDS: IBUPROFEN 600 MG TAB NGT (09:19)
[2019-04-02] MEDS: ASCORBIC ACID 250 MG TAB NGT (09:19)
[2019-04-02] MEDS: BALSAM PERU/CASTOR OIL 60 GM TUBE TOP ×2 (09:20→21:00)
[2019-04-02] MEDS ORDERED: PENDING SANTYL ORDER FOR WOUND CARE XX (11:30)
[2019-04-03 06:10] LABS: ADD MAN DIFF? NO
[2019-04-03 06:18] LABS: BASOPHILS % 0.6 % (0.0-2.0); EOSINOPHILS # 0.1 10^3/ul (0.0-0.5); EOSINOPHILS % 1.5 % (0.0-7.0); HEMATOCRIT 33.9 % (42.0-52.0); HEMOGLOBIN 11.2 g/dl (14.0-18.0); LYMPHOCYTES # 1.5 10^3/ul (0.8-2.9); MEAN CORPUSCULAR VOLUME 90.9 fl (82.0-101.0); MEAN PLATELET VOLUME 12.5 fl (7.4-10.4); MONOCYTE # 0.5 10^3/ul (0.3-0.9); MONOCYTES % 9.1 % (0.0-11.0); NEUTROPHIL # 3.1 10^3/ul (1.6-7.5); NEUTROPHILS % 59.6 % (39.0-77.0); PLATELET COUNT 313 10^3/UL (140-415); RED BLOOD COUNT 3.73 10^6/ul (4.70-6.10); RED CELL DISTRIBUTION WIDTH 14.5 % (11.5-14.5)
[2019-04-03 06:18] LABS: WHITE BLOOD COUNT 5.2 10^3/ul (4.8-10.8)
[2019-04-03 06:59] LABS: ANION GAP 8 (5-13); BLOOD UREA NITROGEN 15 mg/dl (7-20); CALCIUM 8.8 mg/dl (8.4-10.2); CARBON DIOXIDE 29 mmol/L (21-31); CHLORIDE 102 mmol/L (97-110); CREATININE 0.53 mg/dl (0.61-1.24); Estimated GFR > 60 mL/min (>60); GLUCOSE 98 mg/dl (70-220); SODIUM 139 mmol/L (135-144)
[2019-04-03] MEDS: FAMOTIDINE 20 MG TAB PO ×2 (09:25→22:11)
[2019-04-03] MEDS: FOLIC ACID 1 MG TAB NGT (09:25)
[2019-04-03] MEDS: ASCORBIC ACID 250 MG TAB NGT (09:26)
[2019-04-03] MEDS: ZINC SULFATE 220 MG CAP NGT (09:26)
[2019-04-03] MEDS: BALSAM PERU/CASTOR OIL 60 GM TUBE TOP ×2 (09:28→21:00)
[2019-04-04] MEDS: FAMOTIDINE 20 MG TAB PO ×2 (08:56→21:38)
[2019-04-04] MEDS: ZINC SULFATE 220 MG CAP NGT (08:56)
[2019-04-04] MEDS: BALSAM PERU/CASTOR OIL 60 GM TUBE TOP ×2 (08:56→21:38)
[2019-04-04] MEDS: ASCORBIC ACID 250 MG TAB NGT (08:56)
[2019-04-04] MEDS: FOLIC ACID 1 MG TAB NGT (08:56)
[2019-04-05] MEDS: ZINC SULFATE 220 MG CAP NGT (08:43)
[2019-04-05] MEDS: FOLIC ACID 1 MG TAB NGT (08:43)
[2019-04-05] MEDS: ASCORBIC ACID 250 MG TAB NGT (08:43)
[2019-04-05] MEDS: FAMOTIDINE 20 MG TAB PO ×2 (08:44→20:08)
[2019-04-05] MEDS: BALSAM PERU/CASTOR OIL 60 GM TUBE TOP ×2 (08:44→20:08)
[2019-04-06] MEDS: ASCORBIC ACID 250 MG TAB NGT (08:30)
[2019-04-06] MEDS: FAMOTIDINE 20 MG TAB PO (08:30)
[2019-04-06] MEDS: ZINC SULFATE 220 MG CAP NGT (08:30)
[2019-04-06] MEDS: FOLIC ACID 1 MG TAB NGT (08:30)
[2019-04-06] MEDS: BALSAM PERU/CASTOR OIL 60 GM TUBE TOP (08:31)
== END 2019-04-06 19:30 | disposition short-term general hospital (02) | DRG 4 ==
LOC: ICU 03-05 11:22 → E/R 19:02 → ICU 22:53 → 6WM 03-25 17:49
PROVIDERS: Family Medicine
PROC: 0B110F4 Bypass Trachea to Cutaneous with Tracheostomy Device, Open Approach (ICD-10-PCS; principal; 2019-03-16 16:16)
PROC: 5A1955Z Respiratory Ventilation, Greater than 96 Consecutive Hours (ICD-10-PCS; 2019-03-16 16:16)
PROC: 0DH64UZ Insertion of Feeding Device into Stomach, Percutaneous Endoscopic Approach (ICD-10-PCS; 2019-03-16 16:16)
PROC: 0BH17EZ Insertion of Endotracheal Airway into Trachea, Via Natural or Artificial Opening (ICD-10-PCS; 2019-03-16 16:16)
PROC: 3E0G76Z Introduction of Nutritional Substance into Upper GI, Via Natural or Artificial Opening (ICD-10-PCS; 2019-03-16 16:16)
PROC: 009U3ZX Drainage of Spinal Canal, Percutaneous Approach, Diagnostic (ICD-10-PCS; 2019-03-16 16:16)
PROC: 0D20XUZ Change Feeding Device in Upper Intestinal Tract, External Approach (ICD-10-PCS; 2019-03-16 16:16)
DX: A41.9 Sepsis, unspecified organism (principal); G00.1 Pneumococcal meningitis; G93.41 Metabolic encephalopathy; I63.9 Cerebral infarction, unspecified; J18.9 Pneumonia, unspecified organism; J96.20 Acute and chronic respiratory failure, unspecified whether with hypoxia or hypercapnia; I73.9 Peripheral vascular disease, unspecified; B96.1 Klebsiella pneumoniae [K. pneumoniae] as the cause of diseases classified elsewhere; K12.1 Other forms of stomatitis; I51.7 Cardiomegaly; J38.4 Edema of larynx; R13.10 Dysphagia, unspecified; D64.9 Anemia, unspecified; B96.3 Hemophilus influenzae [H. influenzae] as the cause of diseases classified elsewhere; B00.1 Herpesviral vesicular dermatitis; I48.91 Unspecified atrial fibrillation
CPT/HCPCS: 31500; 36415; 36600; 70450; 70496; 70498; 70552; 70553; 71045; 76705; 80048; 80053; 80061; 80202; 80307; 81001; 81003; 82140; 82306; 82803; 82945; 82962; 83036; 83605; 83615; 83735; 83890; 84100; 84145; 84157; 84443; 84484; 85025; 85049; 85300; 85302; 85305; 85362; 85378; 85384; 85610; 85613; 85651; 85670; 85730; 86022; 86140; 86403; 86592; 86635; 86641; 86692; 86703; 86704; 86706; 86708; 86709; 86780; 86788; 86789; 86803; 87040-91; 87070; 87081; 87086; 87102; 87255; 87340; 87529; 89051; 93005; 93306; 94002; 94003; 94640; 94664; 94770; 94799; 95819; 96374; 96375; 96376; 99285-25